=== PATIENT | female | born 1955 | race Caucasian/White ===

== ENCOUNTER 2019-11-06 15:43 | Emergency (ER) | payer MEDICARE, OTHER ==
[~2019-11-06] VITALS: Ht 167.6 cm; Wt 88.5 kg
[~2019-11-06 15:43] MED LIST: ACTONEL150 MG PO; ATENOLOL PO; ATENOLOL25 MG PO; CIPRO500 MG PO; CITALOPRAM HBR20 MG PO; COZAAR25 MG PO; CYCLOBENZAPRINE5 MG PO; DITROPAN XL10 MG PO; DOXYCYCLINE HY100 MG PO; ENABLEX7.5 MG PO; GABAPENTIN300 MG PO; GLUCOVANCE 2.51 EACH PO; GLYBURIDE-METF1 EACH PO; HYDROCODON-ACE1 EACH PO; INSULIN LISPRO; JANUVIA100 MG PO; LANTUS100 UNITS/ SQ; LEVOTHYROXINE; LEVOTHYROXINE PO; LOSARTAN POTASS25 MG PO; NORCO 7.5-3251 EACH PO; OMEPRAZOLE20 M1 PO; SIMVASTATIN20 MG PO; SYNTHROID50 MCG PO
[2019-11-06] MEDS ORDERED: DEXAMETHASONE SOD PHOS INJ 4 MG/ML VIAL IV ONE (16:45)
[2019-11-06] MEDS ORDERED: ALBUTEROL SULFATE HFA 8GM INHALATION AEROSOL INH PRN (16:45)
[2019-11-06] MEDS ORDERED: DEXAMETHASONE SOD PHOS INJ 4 MG/ML VIAL IM ONE (17:15)
--- NOTE | 2019-11-06 17:40 | Diagnostic Imaging Report ---
EXAMINATION: CHEST SINGLE (PORTABLE) INDICATION: Cough for one week. COMPARISON: None FINDINGS: Examination is limited by low lung volumes and underpenetration. TUBES and LINES: None. LUNGS: There is diffuse hazy opacification of the bilateral lung bases. PLEURA: No pleural effusion or pneumothorax. HEART AND MEDIASTINUM: The cardiomediastinal silhouette is unremarkable. BONES AND SOFT TISSUES: No acute osseous lesion. Soft tissues are unremarkable. UPPER ABDOMEN: No free air under the diaphragm. IMPRESSION: Diffuse hazy opacification of the bilateral lung bases which may be due to image technique. Superimposed infectious process cannot be excluded. Recommend repeat examination in AP and lateral projections with improved lung aeration. Signed by: Angela Palacio MD on 11/06/2019 5:36 PM
--- NOTE | 2019-11-06 19:02 | Emergency Department Note ---
History of Present Illnes History of Present Illness Chief Complaint: COVID PUI History of Present Illness This is a 63 year old female PATIENT IN FROM HOME WITH COMPLAINTS OF PRODUCTIVE COUGH X 1 WEEK; STATES THAT SHE RECENTLY HAD COVID TESTING IN SEPTEMBER AND IT WAS NEGATIVE; PATIENT RATES PAIN 5/10, APPEARS IN NO DISTRESS, O2 SATS 98% ON ROOM AIR. Historian: Patient Arrival Mode: Car Cleaning Specialist Required: No Onset (how long ago): week(s) (1) Radiation: Reports non-radiation Severity: moderate Onset quality: gradual Timing of current episode: constant Progression: waxing and waning Chronicity: new Context: Denies recent illness Relieving factors: none Exacerbating factors: none Associated symptoms: Reports denies other symptoms Treatments prior to arrival: none Past Medical/Family History Physician Review I have reviewed the patient's past medical and family history. Any updates have been documented here. Past Medical History Recent Fever: No Clinical Suspicion of Infectio: No New/Unexplained Change in Ment: No Past Medical History: Hypertension, GERD, Hyperlipedemia Other Medical History: TACHYCARDIA HYPERLIPIDEMIA OVERACTIVE BLADDER GERD Past Surgical History: Cholecysctectomy Other Surgery: RIGHT FOOT SURGERY Social History Smoking Cessation: Former smoker Counseling Performed: No Alcohol Use: None Any Illegal Drug Use: No TB Exposure/Symptoms: No Physically hurt or threatened: No Family History Family history of heart diseas: No Other Last Tetanus: UNKNOWN Any Pre-Existing Lines (PICC,: No Review of Systems Review of Systems Constitutional: Reports no symptoms EENTM: Reports no symptoms Cardiovascular: Reports no symptoms Respiratory: Reports as per HPI Gastrointestinal: Reports no symptoms Genitourinary: Reports no symptoms Musculoskeletal: Reports no symptoms Integumentary: Reports no symptoms Neurological: Reports no symptoms Psychological: Reports no symptoms Endocrine: Reports no symptoms Hematological/Lymphatic: Reports no symptoms Physical Exam Related Data Allergies: Coded Allergies: No Known Drug Allergies (Verified Allergy, Unknown, NONE, 01/12/17) Triage Vital Signs Vital Signs Date Time Temp Pulse Resp B/P (MAP) Pulse Ox O2 Delivery O2 Flow Rate FiO2 11/06/19 15:49 98.5 60 18 130/57 98 Room Air Vital signs reviewed: Yes Physical Exam CONSTITUTIONAL Constitutional: Present well-developed, Present well-nourished HENT HENT: Present normocephalic, Present atraumatic, Present oropharynx clear/moist, Present nose normal HENT L/R: Present left ext ear normal, Present right ext ear normal EYES Eyes: Reports PERRL, Reports conjunctivae normal NECK Neck: Present ROM normal PULMONARY Pulmonary: Present effort normal, Present breath sounds normal CARDIOVASCULAR Cardiovascular: Present regular rhythm, Present heart sounds normal, Present capillary refill normal, Present normal rate GASTROINTESTINAL Abdominal: Present soft, Present nontender, Present bowel sounds normal GENITOURINARY Genitourinary: Present exam deferred SKIN Skin: Present warm, Present dry MUSCULOSKELETAL Musculoskeletal: Present ROM normal NEUROLOGICAL Neurological: Present alert, Present oriented x 3, Present no gross motor or sensory deficits PSYCHOLOGICAL Psychological: Present mood/affect normal, Present judgement normal Results Laboratory Laboratory Laboratory Tests Test 11/06/19 16:58 Imaging Imaging results reviewed: Yes Impressions EXAMINATION: CHEST SINGLE (PORTABLE) INDICATION: Cough for one week. COMPARISON: None FINDINGS: Examination is limited by low lung volumes and underpenetration. TUBES and LINES: None. LUNGS: There is diffuse hazy opacification of the bilateral lung bases. PLEURA: No pleural effusion or pneumothorax. HEART AND MEDIASTINUM: The cardiomediastinal silhouette is unremarkable. BONES AND SOFT TISSUES: No acute osseous lesion. Soft tissues are unremarkable. UPPER ABDOMEN: No free air under the diaphragm. IMPRESSION: Diffuse hazy opacification of the bilateral lung bases which may be due to image technique. Superimposed infectious process cannot be excluded. Recommend repeat examination in AP and lateral projections with improved lung aeration. Signed by: Angela Palacio MD on 11/06/2019 5:36 PM Assessment & Plan Medical Decision Making MDM CHECK CXR, CHECK COVID SWAB - R/O CAP, COVID - O2 SATS 98% ON RA Reassessment Reassessment DC HOME WITH ZPACK, SELF-QUARANTINE, PRONING, F/U PCP, RTED SX'S WORSEN Assessment & Plan Final Impression: (1) ACUTE BRONCHITIS, UNSPECIFIED Depart Disposition: HOME, SELF-CARE Last Vital Signs Date Time Temp Pulse Resp B/P (MAP) Pulse Ox O2 Delivery O2 Flow Rate FiO2 11/06/19 16:35 98.6 70 17 100/86 98 11/06/19 15:49 Room Air Home Meds Reported Medications Gabapentin (GABAPENTIN) 300 Mg Capsule, 300 MG PO TID, #60 CAP 09/15/16 Hydrocodone Bit/Acetaminophen (NORCO 7.5-325 TABLET) 1 Each Tablet, 1 EA PO BID PRN for PAIN, TAB 02/07/15 Levothyroxine Sodium (SYNTHROID) 50 Mcg Tab, 50 MCG PO DAILY, TAB 04/04/14 Simvastatin (SIMVASTATIN) 20 Mg Tablet, 20 MG PO HS 04/04/14 Glyburide/Metformin Hcl (GLUCOVANCE 2.5-500 MG TABLET) 1 Each Tablet, PO BID 04/04/14 Oxybutynin Chloride (DITROPAN XL) 10 Mg Tab.er.24, 10 MG PO DAILY 04/04/14 Cyclobenzaprine Hcl (FLEXERIL) 5 Mg Tablet, 5 MG PO QD-BID 04/04/14 Atenolol (ATENOLOL) 25 Mg Tablet, 25 MG PO DAILY 04/04/14 Insulin Glargine (LANTUS) 100 Units/Ml Ml, 70 UNITS SQ HS 04/04/14 Losartan Potassium (COZAAR) 25 Mg Tablet, 25 MG PO BID, TAB 04/04/14 Omeprazole (OMEPRAZOLE) 20 Mg Tablet.dr, 20 MG PO DAILY 01/30/13 Sitagliptin Phosphate (JANUVIA) 100 Mg Tablet, 100 MG PO DAILY 01/30/13 Medications in the ED Albuterol 2 PUFFS RQ4H PRN INH SHORTNESS OF BREATH Last administered on 11/06/19at 17:14; Admin Dose 2 GM; Start 11/06/19 at 16:45; Stop 12/06/19 at 16:44 Dexamethasone Sodium Phosphate 8 mg NOW ONCE IV ; Start 11/06/19 at 16:45; Stop 11/06/19 at 16:46; Status DC Dexamethasone Sodium Phosphate 8 mg NOW ONCE IM Last administered on 11/06/19at 17:17; Admin Dose 8 MG; Start 11/06/19 at 17:15; Stop 11/06/19 at 17:21; Status DC NADINE MERINO MD Nov 06, 2019 19:02
[2019-11-06 19:20] VITALS: BP 132/50
--- NOTE | 2019-11-12 11:08 | NUR ---
Attempt to call pt with COVID results, no answer.
== END 2019-11-06 19:29 | disposition home or self-care (01) ==
LOC: ER 16:24
DX: J20.9 Acute bronchitis, unspecified (principal); R05 Cough; I10 Essential (primary) hypertension; E78.5 Hyperlipidemia, unspecified; K21.9 Gastro-esophageal reflux disease without esophagitis; Z11.59 Encounter for screening for other viral diseases
CPT/HCPCS: 71045; 87635; 99284; J1100; U0002

== ENCOUNTER 2019-11-28 17:52 | Inpatient (IN) | payer MEDICARE, OTHER ==
[~2019-11-28] VITALS: Ht 167.6 cm; Wt 88.5 kg
[2019-11-28] MEDS ORDERED: AZITHROMYCIN 500MG/NS 250 ML 250 ML IV STA (18:05)
[2019-11-28] MEDS ORDERED: ACETAMINOPHEN 325 MG TAB PO STA (18:05)
--- NOTE | 2019-11-28 18:07 | Emergency Department Note ---
History of Present Illnes History of Present Illness Chief Complaint: COVID PUI History of Present Illness This is a 63 year old female with 2 week h/o of cough and myalgias presents to the ED for continued respiratory isuses. Patient seen recently in ED and was diagnosed with bronchitis . Per patient with two negative COVID-19 tests Historian: Patient Arrival Mode: Car Onset (how long ago): week(s) (2) Severity: moderate Duration (how long): week(s) (2) Timing of current episode: constant Progression: worsening Chronicity: new Context: Reports recent illness Associated symptoms: Reports cough, Reports fever/chills Previous service: tests performed, one or more referrals, re-evaluation Past Medical/Family History Physician Review I have reviewed the patient's past medical and family history. Any updates have been documented here. Past Medical History Recent Fever: Yes Clinical Suspicion of Infectio: Yes New/Unexplained Change in Ment: No Past Medical History: Hypertension, GERD, Hyperlipedemia Other Medical History: TACHYCARDIA HYPERLIPIDEMIA OVERACTIVE BLADDER GERD Past Surgical History: Cholecysctectomy Other Surgery: RIGHT FOOT SURGERY Social History Smoking Cessation: Never Smoker Alcohol Use: None Any Illegal Drug Use: No Other Last Tetanus: UNKNOWN Review of Systems Review of Systems Constitutional: Reports fever EENTM: Reports no symptoms Cardiovascular: Reports no symptoms Respiratory: Reports pain with cough Gastrointestinal: Reports no symptoms Genitourinary: Reports no symptoms Musculoskeletal: Reports no symptoms Integumentary: Reports no symptoms Neurological: Reports no symptoms Psychological: Reports no symptoms Endocrine: Reports no symptoms Hematological/Lymphatic: Reports no symptoms Physical Exam Related Data Allergies: Coded Allergies: No Known Allergies (Unverified , 11/28/19) Vital signs reviewed: Yes Physical Exam CONSTITUTIONAL Constitutional: Present cachectic, Present ill appearing HENT HENT: Present normocephalic, Present atraumatic, Present oropharynx clear/moist, Present nose normal HENT L/R: Present left ext ear normal, Present right ext ear normal EYES Eyes: Reports PERRL, Reports conjunctivae normal NECK Neck: Present ROM normal PULMONARY Pulmonary: Present effort normal, Present breath sounds normal, Present other (decreased BS) CARDIOVASCULAR Cardiovascular: Present regular rhythm, Present heart sounds normal, Present capillary refill normal, Present normal rate GASTROINTESTINAL Abdominal: Present soft, Present nontender, Present bowel sounds normal GENITOURINARY Genitourinary: Present exam deferred SKIN Skin: Present warm, Present dry MUSCULOSKELETAL Musculoskeletal: Present ROM normal NEUROLOGICAL Neurological: Present alert, Present oriented x 3, Present no gross motor or sensory deficits PSYCHOLOGICAL Psychological: Present mood/affect normal, Present judgement normal Results Laboratory Lab results reviewed: Yes Laboratory comments Laboratory Tests Test 11/28/19 18:15 11/28/19 18:13 White Blood Count 5.71 x10e3/uL (4.8-10.8) Red Blood Count 4.62 x10e6/uL (3.6-5.1) Hemoglobin 13.8 g/dL (12.0-16.0) Hematocrit 41.0 % (34.2-44.1) Mean Corpuscular Volume 88.7 fL (81-99) Mean Corpuscular Hemoglobin 29.9 pg (28-32) Mean Corpuscular Hemoglobin Concent 33.7 g/dL (31-35) Red Cell Distribution Width 12.2 % (11.7-14.4) Platelet Count 146 x10e3/uL (140-360) Neutrophils (%) (Auto) 60.1 % (38.7-80.0) Lymphocytes (%) (Auto) 29.9 % (18.0-39.1) Monocytes (%) (Auto) 6.8 % (4.4-11.3) Eosinophils (%) (Auto) 2.6 % (0.0-6.0) Basophils (%) (Auto) 0.4 % (0.0-1.0) Neutrophils # (Auto) 3.4 (2.1-6.9) Lymphocytes # (Auto) 1.7 (1.0-3.2) Monocytes # (Auto) 0.4 (0.2-0.8) Eosinophils # (Auto) 0.2 (0.0-0.4) Basophils # (Auto) 0.0 (0.0-0.1) Absolute Immature Granulocyte (auto 0.01 x10e3/uL (0-0.1) Sodium Level 137 mmol/L (136-145) Potassium Level 4.1 mmol/L (3.5-5.1) Chloride Level 99 mmol/L (98-107) Carbon Dioxide Level 27 mmol/L (22-29) Anion Gap 15.1 mmol/L (8-16) Blood Urea Nitrogen 8 mg/dL (7-26) Creatinine 1.08 mg/dL (0.57-1.11) Estimat Glomerular Filtration Rate 51 ML/MIN (60-) BUN/Creatinine Ratio 7 (6-25) Glucose Level 399 mg/dL (74-118) Calcium Level 9.4 mg/dL (8.4-10.2) Total Bilirubin 0.5 mg/dL (0.2-1.2) Aspartate Amino Transf (AST/SGOT) 26 IU/L (5-34) Alanine Aminotransferase (ALT/SGPT) 31 IU/L (0-55) Alkaline Phosphatase 127 IU/L (40-150) Total Protein 7.5 g/dL (6.5-8.1) Albumin 3.8 g/dL (3.5-5.0) Globulin 3.7 g/dL (2.3-3.5) Albumin/Globulin Ratio 1.0 (0.8-2.0) Imaging Imaging results reviewed: Yes Impressions [place] [address] Patient Name: GRICEL CALLAHAN MR #: [id number] : 1955 Age/Sex: 63/F Req #: [id number] Adm Physician: Ordered by: LENNY WINSTON DO Report #: [id number] Location: ER Room/Bed: Procedure: [id number] CT/CT CHEST W Exam Date: Exam Time: REPORT STATUS: Signed EXAMINATION: CT scan of the chest with contrast. TECHNIQUE: Helical CT images of the chest were performed from the lung apices to the level of the adrenal glands after the intravenous administration of 100 cc of Omnipaque 300. Coronal and sagittal reformatted images were obtained. Dose modulation, iterative reconstruction, and/or weight based adjustment of the mA/kV was utilized to reduce the radiation dose to as low as reasonably achievable. COMPARISON: None. CLINICAL HISTORY:Possible pneumonia, hypoxia DISCUSSION: LINES/TUBES: None. LUNGS AND AIRWAYS: 6 mm left lower lobe pulmonary nodule. 3 mm right upper lobe pulmonary nodule. PLEURA: No pneumothorax or pleural effusions. HEART AND MEDIASTINUM: The thyroid gland is normal. The heart and pericardium are within normal limits. LYMPH NODES: There is no mediastinal, hilar or axillary lymphadenopathy. ABDOMEN: 5.5 cm hypodensity in the peripheral aspect of the right hepatic lobe. Smaller adjacent hypodensity posteriorly measuring 1.5 cm. Cirrhotic morphology. Cholecystectomy. BONES AND SOFT TISSUES: No acute bony abnormalities. IMPRESSION: No pulmonary embolism. 2 pulmonary nodules measuring up to 6 mm in the left lower lobe. Cirrhotic liver morphology with 2 hypodensities right lobe measuring up to 5.4 cm. Nonemergent MRI of the abdomen with contrast recommended. Signed by: Dr. Geni Becerril M.D. on 11/28/2019 8:28 PM Dictated By: GENI BECERRIL MD 27 Transcribed By: LUCY on 11/28/192027 COPY TO: LENNY WINSTON DO~ [place] [address] Patient Name: GRICEL CALLAHAN MR #: [id number] : 1955 Age/Sex: 63/F Req #: [id number] Adm Physician: Ordered by: LENNY WINSTON DO Report #: [id number] Location: ER Room/Bed: Procedure: [id number] DX/CHEST SINGLE (PORTABLE) Exam Date: 11/28/19 Exam Time: 1817 REPORT STATUS: Signed Examination: Single AP view of the chest. COMPARISON: None. INDICATION: Cough DISCUSSION: Lines/tubes: None. Lungs: The lungs are well inflated and clear. No pneumonia or pulmonary edema. Pleura: No pleural effusion or pneumothorax. Heart and mediastinum: Prominent heart size. Bones and soft tissues: No acute bony abnormalities. Soft tissue attenuation overlying the lower lungs. IMPRESSION: 1. No acute cardiopulmonary abnormalities. Signed by: Dr. Geni Becerril M.D. on 11/28/2019 6:47 PM Dictated By: GENI BECERRIL MD 46 Transcribed By: LUCY on 11/28/191846 COPY TO: LENNY WINSTON DO~ Critical Care Time Total Critical Care Time (min): 31 Critcal care necessary due to: respiratory failure Critcal care time spent by me: evaluation patient response to tx, examination of patient, obtaining hx from patient/surrogate, order/review laboratory studies, order/review radiographic studies, pulse oximetry, re-evaluation of patient condition Assessment & Plan Medical Decision Making [facility] 63 yof presents with dyspea and hypoxia. Respiratory distress upon arrival. Diff Dx : PE, PTX, CHF, Sepsis, COVID-19 URI infection, ACS, COPDD, ARDS, airway obstruction, Lung CA. Patient highly critical. Plan to admit for continuous pulse oximetry monitoring Assessment & Plan Final Impression: (1) Person under investigation for COVID-19 (2) Hypoxia Depart Disposition: ADMITTED Home Meds Reported Medications Gabapentin (GABAPENTIN) 300 Mg Capsule, 300 MG PO TID, #60 CAP 09/15/16 Hydrocodone Bit/Acetaminophen (NORCO 7.5-325 TABLET) 1 Each Tablet, 1 EA PO BID PRN for PAIN, TAB 02/07/15 Levothyroxine Sodium (SYNTHROID) 50 Mcg Tab, 50 MCG PO DAILY, TAB 04/04/14 Simvastatin (SIMVASTATIN) 20 Mg Tablet, 20 MG PO HS 04/04/14 Glyburide/Metformin Hcl (GLUCOVANCE 2.5-500 MG TABLET) 1 Each Tablet, PO BID 04/04/14 Oxybutynin Chloride (DITROPAN XL) 10 Mg Tab.er.24, 10 MG PO DAILY 04/04/14 Cyclobenzaprine Hcl (FLEXERIL) 5 Mg Tablet, 5 MG PO QD-BID 04/04/14 Atenolol (ATENOLOL) 25 Mg Tablet, 25 MG PO DAILY 04/04/14 Insulin Glargine (LANTUS) 100 Units/Ml Ml, 70 UNITS SQ HS 04/04/14 Losartan Potassium (COZAAR) 25 Mg Tablet, 25 MG PO BID, TAB 04/04/14 Omeprazole (OMEPRAZOLE) 20 Mg Tablet.dr, 20 MG PO DAILY 01/30/13 Sitagliptin Phosphate (JANUVIA) 100 Mg Tablet, 100 MG PO DAILY 01/30/13 LENNY WINSTON DO Nov 28, 2019 18:07
--- NOTE | 2019-11-28 18:51 | Diagnostic Imaging Report ---
Examination: Single AP view of the chest. COMPARISON: None. INDICATION: Cough DISCUSSION: Lines/tubes: None. Lungs: The lungs are well inflated and clear. No pneumonia or pulmonary edema. Pleura: No pleural effusion or pneumothorax. Heart and mediastinum: Prominent heart size. Bones and soft tissues: No acute bony abnormalities. Soft tissue attenuation overlying the lower lungs. IMPRESSION: 1. No acute cardiopulmonary abnormalities. Signed by: Dr. Ramone Mejia M.D. on 11/28/2019 6:47 PM
[2019-11-28 18:54] LABS: BASOPHILS % 0.4 % (0.0-1.0); EOSINOPHILS # (AUTO) 0.2 (0.0-0.4); EOSINOPHILS % 2.6 % (0.0-6.0); HEMOGLOBIN 13.8 g/dL (12.0-16.0); LYMPHOCYTES # (AUTO) 1.7 (1.0-3.2); LYMPHOCYTES % 29.9 % (18.0-39.1); MEAN CORPUSCULAR HEMOGLOBIN 29.9 pg (28-32); MEAN CORPUSCULAR HGB CONC 33.7 g/dL (31-35); MEAN CORPUSCULAR VOLUME 88.7 fL (81-99); MONOCYTES # (AUTO) 0.4 (0.2-0.8); MONOCYTES % 6.8 % (4.4-11.3); NEUTROPHILS # (AUTO) 3.4 (2.1-6.9); NEUTROPHILS % 60.1 % (38.7-80.0); PLATELET COUNT 146 x10e3/uL (140-360); RED BLOOD COUNT 4.62 x10e6/uL (3.6-5.1); RED CELL DISTRIBUTION WIDTH 12.2 % (11.7-14.4)
--- OUTSIDE RECORDS SUMMARY | 2019-11-28 18:59 | XMS REPORT | Continuity of Care Document ---
Author Author [facility] t Organization [facility] Address [address] [place] [address] Phone Unavailable Care Team Providers Care Foreign Exchange Student Coordinator Name Role Phone NO, PCP PCP Unavailable LENNY WINSTON Attphys Unavailable Jerrod MERINO Attphys Unavailable CORINNE CAMARGO P.A. Attphys Unavailable RINKU GILMORE PA Attphys Unavailable Alfonso Mendosa M.D. Attphys Unavailable Tristen SHAVER Attphys Unavailable Payers Payer Name Policy Type Policy Number Effective Date Expiration Date S ource Medicare A & B [id number] 2008 00:00:00 [facility] [id number] [facility] Problems Condition Name Condition Details Condition Category Status Onset Date Resolution Date Last Treatment Date Treating Clinician Comments Source Abdominal pain Problem Active [facility] Contusion of right foot Problem Active [facility] Closed fracture of left tibial plateau w ith routine healing, subsequent encounter Closed fracture of left tibial plateau w ith routine healing, subsequent encounter Problem Active [facility] Closed bicondylar fracture of left tibial plateau Clos ed bicondylar fracture of left tibial plateau Problem Active [facility] Osteoporosis Osteoporosis Problem Active [facility] Screening for endocrine, nutritional, metabolic and im munity disorder Screening for endocrine, nutritional, metabolic and immunity disorder Problem Active [facility] Allergies, Adverse Reactions, Alerts This patient has no known allergies or adverse reactions. Social History Social Habit Start Date Stop Date Quantity Comments Source Sex Assigned At 1955 00:00:00 1955 00:00:00 Female [facility] Medications Ordered Medication Name Filled Medication Name Start Date Stop Da te Current Medication? Ordering Clinician Indication Dosage Frequency Signature (SIG) Comments Components Source Vitamin D (Ergocalciferol) 1.25 MG (96666 UT) Oral Cap sunny Vitamin D (Ergocalciferol) 1.25 MG (25200 UT) Oral Capsule 2019-01-01 00:00:00 Yes RINKU ENGLAND 1 TAKE 1 CAPSULE WEEKLY [facility] Forteo 600 MCG/2.4ML SOLN Forteo 600 MCG/2.4ML SOLN 2018-01-16 00:00: 00 Yes CORINNE CAMARGO P.AMargareth QD INJECT 20 MCG. SUBCUTANEOUSLY ONCE DAILY DIRECTED. [facility] Cephalexin 500 MG Oral Capsule Cephalexin 500 MG Oral Capsul e 2017-11-28 00:00:00 Yes RINKU ENGLAND Q0.25D TAKE 1 CAPSULE 4 TI MES DAILY. [facility] Sulfamethoxazole-Trimethoprim 800-160 MG Oral Tablet S ulfamethoxazole- Trimethoprim 800-160 MG Oral Tablet 2017-10-10 00:00:00 Yes RINKU ENGLAND 1 Q0.5D TAKE 1 TABLET TWICE DAILY [facility] Atenolol Atenolol Yes 25 Daily [facility] Cyclobenzaprine Hcl (Flexeril) 5 Mg TABLET Cyclobenzap rine Hcl (Flexeril) 5 Mg TABLET Yes 5 Qd-Bid [facility] Gabapentin Gabapentin Yes 300 Three Times A Day [facility] Glyburide/Metformin Hcl (Glucovance 2.5-500 Mg Tablet) 1 Each TABLET Glyburide/Metformin Hcl (Glucovance 2.5-500 Mg Tablet) 1 Each TABLET Yes Twice A Day [facility] Hydrocodone Bit/Acetaminophen (Madison 7.5-325 Tablet) 1 Each TABLET Hydrocodone Bit/Acetaminophen (Madison 7.5-325 Tablet) 1 Each TABLET Yes 1 Twice A Day as needed for Pain [facility] Insulin Glargine (Lantus) 100 Units/Ml ML Insulin Glar gine (Lantus) 100 Units/Ml ML Yes 70 Bedtime [facility] Levothyroxine Sodium (Synthroid) 50 Mcg TAB Levothyrox ine Sodium (Synthroid) 50 Mcg TAB Yes 50 Daily [facility] Losartan Potassium (Cozaar) 25 Mg TABLET Losartan Pota ssium (Cozaar) 25 Mg TABLET Yes 25 Twice A Day [facility] Omeprazole Omeprazole Yes 20 Daily [facility] Oxybutynin Chloride (Ditropan Xl) 10 Mg TAB.ER.24 Oxyb utynin Chloride (Ditropan Xl) 10 Mg TAB.ER.24 Yes 10 Daily [facility] Simvastatin Simvastatin Yes 20 Bedtime [facility] Sitagliptin Phosphate (Januvia) 100 Mg TABLET Sitaglip tin Phosphate (Januvia) 100 Mg TABLET Yes 100 Daily [facility] Darifenacin Hydrobromide (Enablex) 7.5 Mg TAB.ER.24H D arifenacin Hydrobromide (Enablex) 7.5 Mg TAB.ER.24H 2016-10-05 00:00:00 No 7.5 Daily [facility] Ciprofloxacin Hcl (Cipro) 500 Mg TABLET Ciprofloxacin Hcl (C ipro) 500 Mg TABLET 2016-09-15 00:00:00 No 500 Every 12 Hours [facility] Citalopram Hydrobromide (Citalopram Hbr) 20 Mg TABLET Citalopram Hydrobromide (Citalopram Hbr) 20 Mg TABLET 2016-09-15 00:00:00 No 20 Daily [facility] Doxycycline Hyclate Doxycycline Hyclate 2016-09-15 00:00:00 No 100 Every 12 Hours [facility] Atenolol Atenolol 2014-04-04 00:00:00 No Daily [facility] Cyclobenzaprine Hcl (Flexeril) 5 Mg TABLET Cyclobenzap rine Hcl (Flexeril) 5 Mg TABLET 2014-04-04 00:00:00 No 5 Daily [facility] Darifenacin Hydrobromide (Enablex) 7.5 Mg TAB.ER.24H D arifenacin Hydrobromide (Enablex) 7.5 Mg TAB.ER.24H 2014-04-04 00:00:00 No 7.5 Daily [facility] Glyburide/Metformin Hcl (Glyburide-Metformin 2.5-500 M g) 1 Each TABLET Glyburide/Metformin Hcl (Glyburide-Metformin 2.5-500 Mg) 1 Each TABLET 2014-04-04 00:00:00 No Twice A Day [facility] Humalog 70-80 U Q Hs Humalog 70-80 U Q Hs 2014-04-04 00:00:00 No [facility] Hydrocodone Bit/Acetaminophen (Hydrocodon-Acetaminophe n 5-500) 1 Each CAPSULE Hydrocodone Bit/Acetaminophen (Hydrocodon-Acetaminophen 5-500) 1 Each CAPSULE 2014-04-04 00:00:00 No Twice A Day [facility] Levothyroxine Levothyroxine 2014-04-04 00:00:00 [facility] Losartan Potassium Losartan Potassium 2014-04-04 00:00:00 No 25 Daily [facility] Risedronate Sodium (Actonel) 150 Mg TABLET Risedronate Sodium (Actonel) 150 Mg TABLET 2014-04-04 00:00:00 No 150 Daily [facility] Vital Signs Vital Name Observation Time Observation Value Comments Source Body Temperature 2019-11-06 19:20:00 97.0 [degF] [facility] Weight 2019-11-06 15:49:00 195 [lb_av] [facility] BMI (Body Mass Index) 2019-11-06 15:49:00 31.5 kg/m2 [facility] Procedures Procedure Date / Time Performed Performing Clinician Sourc e CT Knee without contrast [id number] 2019-04-10 00:00:[address] [facility] CT Tib Fib without contrast [id number] 2019-03-26 00:00:[address] [facility] [U] XRAY KNEE 1 OR 2 VWS LEFT [id number] 2019-03-12 00:00:00 [facility] [Q] SED RATE BY MODIFIED ELIZA, MANUAL 2018-07-27 00:00:00 [facility] [QLH] CBC (INCLUDES DIFF/PLT) 2018-07-27 00:00:00 [facility] [QLH] C-REACTIVE PROTEIN 2018-07-27 00:00:00 [facility] Vitamin D 25-Hydroxy, D2 + D3 2018-07-27 00:00:00 [facility] [QH] CALCIUM 2018-06-30 00:00:00 [facility] [Q] PROCOLLAGEN TYPE I INTACT N TERMINAL PROPEPTIDE 2018-06-30 0 0:00:00 [facility] [U] XRAY KNEE 1 OR 2 VWS LEFT [id number] 2018-06-20 00:00:00 [facility] [Q] PROCOLLAGEN TYPE I INTACT N TERMINAL PROPEPTIDE 2018-03-24 0 0:00:00 [facility] [QH] CALCIUM 2018-03-24 00:00:00 [facility] [QL] PHOSPHATE ( PHOSPHORUS) 2018-03-24 00:00:00 [facility] [QL] MAGNESIUM 2018-03-24 00:00:00 [facility] [U] XRAY KNEE 1 OR 2 VWS LEFT [id number] 2018-03-23 00:00:00 [facility] [U] XRAY KNEE 1 OR 2 VWS LEFT [id number] 2018-01-13 00:00:00 [facility] [U] XRAY KNEE 1 OR 2 VWS LEFT [id number] 2017-12-01 00:00:00 [facility] [Q] PROCOLLAGEN TYPE I INTACT N TERMINAL PROPEPTIDE 2017-11-18 0 0:00:00 [facility] [QH] CALCIUM 2017-11-18 00:00:00 [facility] [U] XRAY KNEE 1 OR 2 VWS LEFT [id number] 2017-11-18 00:00:00 [facility] [O] Dexa Scan ([employer] X-Ray) [id number] 0518-07-25 00:00:00 [facility] [O] Dexa Scan ([employer] X-Ray) [id number] 8199-07-02 00:00:00 [facility] Plan of Care Planned Activity Planned Date Details Comments Source Diagnostic Test Pending 2018-06-23 00:00:00 [Q] PROCOLLAGEN TYPE I INTACT N TERMINAL PROPEPTIDE [code = [Q] PROCOLLAGEN TYPE I INTACT N TERMINAL PROPEPTIDE] [facility] Diagnostic Test Pending 2018-06-23 00:00:00 [QH] CALCIUM [code = [QH] CALCIUM] [facility] Diagnostic Test Pending 2018-06-23 00:00:00 [QLH] PHOSPHATE ( PHOSPHORUS) [code = [QLH] PHOSPHATE ( PHOSPHORUS)] [facility] Diagnostic Test Pending 2018-06-23 00:00:00 [QLH] MAGNESIUM [code = [QLH] MAGNESIUM] [facility] Diagnostic Test Pending 2018-02-18 00:00:00 [Q] PROCOLLAGEN TYPE I INTACT N TERMINAL PROPEPTIDE [code = [Q] PROCOLLAGEN TYPE I INTACT N TERMINAL PROPEPTIDE] [facility] Diagnostic Test Pending 2018-02-18 00:00:00 [QH] CALCIUM [code = [QH] CALCIUM] [facility] Diagnostic Test Pending 2018-02-18 00:00:00 [Q] PROCOLLAGEN TYPE I INTACT N TERMINAL PROPEPTIDE [code = [Q] PROCOLLAGEN TYPE I INTACT N TERMINAL PROPEPTIDE] [facility] Diagnostic Test Pending 2018-02-18 00:00:00 [QH] CALCIUM [code = [QH] CALCIUM] [facility] Instructions COVID-19: 07/09/2019 [facility] Instructions Bronchitis (Acute) - Adult [facility] Encounters Start Date/Time End Date/Time Encounter Type Admission Type [facility] Care Department Encounter ID Source 2019-11-06 16:24:00 2019-11-06 19:29:00 Departed Emergency Room 1 NADINE MERINO [facility] [id number] [facility] 2019-05-04 10:30:00 2019-05-04 10:30:00 Appointment; DIANE ACMARGO P.A. YAZDANI, CHRISTINA, P.A. [facility] [id number] [facility] 2019-03-26 12:00:00 2019-03-26 12:00:00 Appointment; RINKU GILMORE PA HANSEN, DENISE, PA [facility] [id number] [facility] 2019-01-01 12:00:00 2019-01-01 12:00:00 Appointment; RINKU GILMORE PA HANSEN, DENISE, PA [facility] [id number] [facility] 2018-06-30 10:30:00 2018-06-30 10:30:00 Appointment; DIANE CAMARGO P.A. YAZDANI, CHRISTINA, P.A. [facility] Orthopedics [id number] [facility] 2018-06-26 10:45:00 2018-06-26 10:45:00 Appointment; RINKU GILMORE PA HANSEN, DENISE, PA [facility] Orthopedics [id number] [facility] 2018-03-27 13:15:00 2018-03-27 13:15:00 Appointment; RINKU GILMORE PA HANSEN, DENISE, PA [facility] Orthopedics [id number] [facility] 2018-03-24 10:30:00 2018-03-24 10:30:00 Appointment; DIANE CAMARGO P.A. YAZDANI, CHRISTINA, PHans [facility] Orthopedics [id number] [facility] 2018-02-27 13:00:00 2018-02-27 13:00:00 Appointment; RINKU GILMORE PA HANSEN, DENISE, PA [facility] [id number] [facility] 2018-01-23 13:30:00 2018-01-23 13:30:00 Appointment; RINKU GILMORE PA HANSEN, DENISE, PA [facility] Orthopedics [id number] [facility] 2017-12-12 13:30:00 2017-12-12 13:30:00 Appointment; RINKU GILMORE PA HANSEN, DENISE, PA [facility] Orthopedics [id number] [facility] 2017-11-28 13:15:00 2017-11-28 13:15:00 Appointment; RINKU GILMORE PA HANSEN, DENISE, PA [facility] Orthopedics [id number] [facility] 2017-11-18 11:00:00 2017-11-18 11:00:00 Appointment; DIANE CAMARGO P.A. YAZDANI, CHRISTINA, [place] [facility] Orthopedics [id number] [facility] 2017-10-31 13:15:00 2017-10-31 13:15:00 Appointment; RINKU GILMORE PA HANSEN, DENISE, PA [facility] [id number] [facility] 2017-10-24 12:45:00 2017-10-24 12:45:00 Appointment; RINKU GILMORE PA HANSEN, DENISE, PA [facility] [id number] [facility] 2017-10-13 07:00:00 2017-10-13 07:00:00 Appointment; Alfonso Mendosa M.D. Achor, Timothy, M.D. [facility] [id number] [facility] 2017-10-10 12:45:00 2017-10-10 12:45:00 Appointment; RINKU GILMORE PA HANSEN, DENISE, PA [facility] [id number] [facility] Results Test Description Test Time Test Comments Results Result Comments Source CHEST SINGLE (PORTABLE) 2019-11-28 18:46:00 [place] [address] Patient Name: GRICEL CALLAHAN MR #: [id number] : 1955 Age/Sex: 63/F Req #: [id number] Adm Physician: Ordered by: LENNY WINSTON DO Report #: [id number] Location: ER Room/Bed: Procedure: [id number] DX/CHEST SINGLE (PORTABLE) Exam Date: 11/28/19 Exam Time: 1817 REPORT STATUS: Signed Examination: Single AP view of the chest. COMPARISON: None. INDICATION: Cough DISCUSSION: Lines/tubes: None. Lungs: The lungs are well inflated and clear. No pneumonia or pulmonary edema. Pleura: No pleural effusion or pneumothorax. Heart and mediastinum: Prominent heart size. Bones and soft tissues: No acute bony abnormalities. Soft tissue attenuation overlying the lower lungs. IMPRESSION: 1. No acute cardiopulmonary abnormalities. Signed by: Dr. Geni Becerril M.D. on 11/28/2019 6:47 PM Dictated By: GENI BECERRIL MD 46 Transcribed By: LUCY on 11/28/191846 COPY TO: LENNY WINSTON CHEST SINGLE (PORTABLE) 2019-11-06 17:27:00 [place] [address] Patient Name: GRICEL CALLAHAN MR #: [id number] : 1955 Age/Sex: 63/F Req #: [id number] Adm Physician: Ordered by: NADINE MERINO MD Report #: [id number] Location: ER Room/Bed: Procedure: [id number] DX/CHEST SINGLE (PORTABLE) Exam Date: 11/06/19 Exam Time: 1627 REPORT STATUS: Signed EXAMINATION: CHEST SINGLE (PORTABLE) INDICATION: Cough for one week. COMPARISON: None FINDINGS: Examination is limited by low lung volumes and underpenetration. TUBES and LINES: None. LUNGS: There is diffuse hazy opacification of the bilateral lung bases. PLEURA: No pleural effusion or pneumothorax. HEART AND MEDIASTINUM: The cardiomediastinal silhouette is unremarkable. BONES AND SOFT TISSUES: No acute osseous lesion. Soft tissues are unremarkable. UPPER ABDOMEN: No free air under the diaphragm. IMPRESSION: Diffuse hazy opacification of the bilateral lung bases which may be due to image technique. Superimposed infectious process cannot be excluded. Recommend repeat examination in AP and lateral projections with improved lung aeration. Signed by: Bernadine Ayon MD on 11/06/2019 5:36 PM Dictated By: BERNADINE AYON MD 35 Transcribed By: LUCY on 11/06/191735 COPY TO: NADINE MERINO MD [U] XRAY KNEE 1 OR 2 VWS LEFT [id number] 2019-03-26 12:02:00 Images acquired, not reported on this accession number. [facility] [] CALCIUM 2018-06-30 10:55:00 Test Item CALCIUM (test code = CALCIUM) 9.5 mg/dl 8.6-10.4 N [facility][] PROCOLLAGEN TYPE I INTACT N TERMINAL [id number] 10:55:00* Test Item Value Reference Range Interpretation Comments PROCOLLAGEN TYPE I INTACT N TERMINAL PRO PEPTIDE (test code = PROCOLLAGEN TYPE I INTACT N TERMINAL PROPEPTIDE) 71 {mcg/L} *Unable to flag abnormal result(s), please refer to reference range(s) below: Reference range(s): Female: <20 years: Not established 20-45 years: 22 - 104 mcg/L 46-60 years: 20 - 108 mcg/L >60 years: Not established [facility][U] XRAY KNEE 1 OR 2 VWS LEFT [id number] 10:42:00Images acquired, not reported on this accession number.[facility][] XRAY KNEE 1 OR 2 VWS LEFT [id number] 13:46:00Images acquired, not reported on this accession number.[facility] [[facility]] [id number] 07:57:00* Test Item Value Reference Range Interpretation Comments MAGNESIUM (test code = MAGNESIUM) 1.6 mg/dl 1.5-2.5 N [facility]] PHOSPHATE ( PHOSPHORUS)2017-10-31 07:57:00 * Test Item Value Reference Range Interpretation Comments PHOSPHATE ( PHOSPHORUS) (test code = PHOSPHATE ( PHOSPHO NOMAN)) 2.5 mg/dl 2.5-4.5 N [facility][] PROCOLLAGEN TYPE I INTACT N TERMINAL [id number] 07:57:00* Test Item Value Reference Range Interpretation Comments PROCOLLAGEN TYPE I INTACT N TERMINAL PRO PEPTIDE (test code = PROCOLLAGEN TYPE I INTACT N TERMINAL PROPEPTIDE) 76 {mcg/L} *Unable to flag abnormal result(s), please refer to reference range(s) below: Reference range(s): Female: <20 years: Not established 20-45 years: 22 - 104 mcg/L 46-60 years: 20 - 108 mcg/L >60 years: Not established [facility]] ALKALINE PHOSPHATASE, BONE SPECIFIC 2017-10-31 07:57:00* Test Item Value Reference Range Interpretation Comments BONE SPECIFIC (test code = BONE SPECIFIC) 18.3 {mcg/L} 5.6-29.0 [facility][] C TELOPEPTIDE (CTX)2017-10-31 07:57:00* Test Item Value Reference Range Interpretation Comments C TELOPEPTIDE (CTX) (test code = C TELOPEPTIDE (CTX)) 308 pg/ml Reference Range:NOT ESTABLISHED Adult Female Reference Ranges for C-Telopeptide (CTx): 18-29 years: 64-640 pg/mL 30-39 years: 60-650 pg/mL 40-49 years: 40- 465 pg/mL >49 years: Not Established No reference range is provided for postmenopausal womenbecause of the increased rate of bone turnoverpost- menopause. It is recommended that results forpostmenopausal women be compared to the premenopausalreference range as this will give a better indication oftheir rate of bone loss. [facility]] TSH, 3RD GENERATION W/REFLEX TO FT4 2017-10-31 07:57:00* Test Item Value Reference Range Interpretation Comments TSH, 3RD GENERATION W/REFLEX TO FT4 (evert t code = TSH, 3RD GENERATION W/REFLEX TO FT4) 2.29 {MIU/L} 0.40-4.50 N [facility][U] XRAY KNEE 1 OR 2 VWS LEFT [id number] 13:19:00Images acquired, not reported on this accession number.[facility][U] XRAY KNEE 1 OR 2 VWS LEFT [id number] 12:52:00Images acquired, not reported on this accession number.[facility] FOOT LEFT [facility] [address] [place] [address] Patient Name: GRICEL CALLAHAN MR #: [id number] : 1955 Age/Sex: 61/F Req #: [id number] [facility] Physician: Ordered by: JUAN BAH Report #: [id number] Location: ER Room/Bed: Procedure: [id number] DX/FOOT LEFT COMPLETE Exa m Date: 01/12/17 Exam Time: 1210 REPORT STATUS: Signed PROCEDURE: X-RAY LEFT FOOT, COMPLETE COMPARISON: None. INDICATIONS: HORSE STEPPED ON LEFT FOOT FINDINGS: No acute, displ aced fracture or dislocation. Appropriate alignment between the medial cuneif orm and second metatarsal base in keeping with an intact Lisfranc ligament. Scattered foci of degenerative joint disease throughout the midfoot and forefoot. Degenerative plantar and posterior calcaneal spur. Soft tissues are grossly unremarkable. CONCLUSION: No acute osseous abnormality. Dictated by: Carlyle Campa M.D. on 01/12/2017 at 12:40 Electronically ap proved by: Carlyle Campa M.D. on 01/12/2017 at 12:40 Dictated By: Sandy CAMPA MD 1240 Tr anscribed By: ELIZABETH on 01/12/17 1240 COPY TO: JUAN BAH
[2019-11-28 19:13] LABS: ALBUMIN 3.8 g/dL (3.5-5.0); ANION GAP 15.1 mmol/L (8-16); CALCIUM 9.4 mg/dL (8.4-10.2); CREATININE, SERUM 1.08 mg/dL (0.57-1.11); POTASSIUM 4.1 mmol/L (3.5-5.1)
[2019-11-28] MEDS ORDERED: SODIUM CHLORIDE 0.9% 50ML 50 ML ONE (19:58)
[2019-11-28] MEDS ORDERED: IOPAMIDOL 370 MG/ML 200 ML INFUS..BTL INJ ONE (19:58)
--- NOTE | 2019-11-28 20:31 | Diagnostic Imaging Report ---
EXAMINATION: CT scan of the chest with contrast. TECHNIQUE: Helical CT images of the chest were performed from the lung apices to the level of the adrenal glands after the intravenous administration of 100 cc of Omnipaque 300. Coronal and sagittal reformatted images were obtained. Dose modulation, iterative reconstruction, and/or weight based adjustment of the mA/kV was utilized to reduce the radiation dose to as low as reasonably achievable. COMPARISON: None. CLINICAL HISTORY:Possible pneumonia, hypoxia DISCUSSION: LINES/TUBES: None. LUNGS AND AIRWAYS: 6 mm left lower lobe pulmonary nodule. 3 mm right upper lobe pulmonary nodule. PLEURA: No pneumothorax or pleural effusions. HEART AND MEDIASTINUM: The thyroid gland is normal. The heart and pericardium are within normal limits. LYMPH NODES: There is no mediastinal, hilar or axillary lymphadenopathy. ABDOMEN: 5.5 cm hypodensity in the peripheral aspect of the right hepatic lobe. Smaller adjacent hypodensity posteriorly measuring 1.5 cm. Cirrhotic morphology. Cholecystectomy. BONES AND SOFT TISSUES: No acute bony abnormalities. IMPRESSION: No pulmonary embolism. 2 pulmonary nodules measuring up to 6 mm in the left lower lobe. Cirrhotic liver morphology with 2 hypodensities right lobe measuring up to 5.4 cm. Nonemergent MRI of the abdomen with contrast recommended. Signed by: Dr. Ramone Mejia M.D. on 11/28/2019 8:28 PM
--- OUTSIDE RECORDS SUMMARY | 2019-11-28 21:44 | XMS REPORT | Continuity of Care Document ---
Author Author [facility] t Organization [facility] Address [address] [place] [address] Phone Unavailable Care Team Providers Care Piggyback Clerk Name Role Phone NO, PCP PCP Unavailable LENNY WINSTON Attphys Unavailable Jerrod MERINO Attphys Unavailable CORINNE CAMARGO P.A. Attphys Unavailable RINKU GILMORE PA Attphys Unavailable Alfonso Mendosa M.D. Attphys Unavailable Tristen SHAVER Attphys Unavailable Payers Payer Name Policy Type Policy Number Effective Date Expiration Date S ource Medicare A & B [id number] 2008 00:00:00 [facility] [id number] [facility] Problems Condition Name Condition Details Condition Category Status Onset Date Resolution Date Last Treatment Date Treating Clinician Comments Source Abdominal pain Problem Active C [facility] Contusion of right foot Problem Active [facility] Closed fracture of left tibial plateau w ith routine healing, subsequent encounter Closed fracture of left tibial plateau w ith routine healing, subsequent encounter Problem Active [facility] Closed bicondylar fracture of left tibial plateau Clos ed bicondylar fracture of left tibial plateau Problem Active [facility] Osteoporosis Osteoporosis Problem Active [facility] Screening for endocrine, nutritional, metabolic and im munity disorder Screening for endocrine, nutritional, metabolic and immunity disorder Problem Active [facility] Allergies, Adverse Reactions, Alerts This patient has no known allergies or adverse reactions. Social History Social Habit Start Date Stop Date Quantity Comments Source Sex Assigned At 1955 00:00:00 1955 00:00:00 Female [facility] Medications Ordered Medication Name Filled Medication Name Start Date Stop Da te Current Medication? Ordering Clinician Indication Dosage Frequency Signature (SIG) Comments Components Source Vitamin D (Ergocalciferol) 1.25 MG (64676 [place]) Oral Cap sunny Vitamin D (Ergocalciferol) 1.25 MG (47502 [place]) Oral Capsule 2019-01-01 00:00:00 Yes RINKU ENGLAND 1 TAKE 1 CAPSULE WEEKLY [facility] Forteo 600 MCG/2.4ML SOLN Forteo 600 MCG/2.4ML SOLN 2018-01-16 00:00: 00 Yes CORINNE CAMARGO P.AMargareth QD INJECT 20 MCG. SUBCUTANEOUSLY ONCE DAILY DIRECTED. [facility] Cephalexin 500 MG Oral Capsule Cephalexin 500 MG Oral Capsul e 2017-11-28 00:00:00 Yes RIKNU ENGLAND Q0.25D TAKE 1 CAPSULE 4 TI MES DAILY. [facility] Sulfamethoxazole-Trimethoprim 800-160 MG Oral Tablet S ulfamethoxazole- Trimethoprim 800-160 MG Oral Tablet 2017-10-10 00:00:00 Yes RINKU ENGLAND 1 Q0.5D TAKE 1 TABLET TWICE DAILY [facility] Atenolol Atenolol Yes 25 Daily [facility] Cyclobenzaprine Hcl (Flexeril) 5 Mg TABLET Cyclobenzap rine Hcl (Flexeril) 5 Mg TABLET Yes 5 Qd-Bid [facility] Gabapentin Gabapentin Yes 300 Three Times A Day [facility] Glyburide/Metformin Hcl (Glucovance 2.5-500 Mg Tablet) 1 Each TABLET Glyburide/Metformin Hcl (Glucovance 2.5-500 Mg Tablet) 1 Each TABLET Yes Twice A Day [facility] Hydrocodone Bit/Acetaminophen ([place] 7.5-325 Tablet) 1 Each TABLET Hydrocodone Bit/Acetaminophen ([place] 7.5-325 Tablet) 1 Each TABLET Yes 1 Twice A Day as needed for Pain [facility] Insulin Glargine (Lantus) 100 Units/Ml ML Insulin Glar gine (Lantus) 100 Units/Ml ML Yes 70 Bedtime [facility] Levothyroxine Sodium (Synthroid) 50 Mcg TAB Levothyrox ine Sodium (Synthroid) 50 Mcg TAB Yes 50 Daily [facility] Losartan Potassium (Cozaar) 25 Mg TABLET Losartan Pota ssium (Cozaar) 25 Mg TABLET Yes 25 Twice A Day [facility] Omeprazole Omeprazole Yes 20 Daily [facility] Oxybutynin Chloride (Ditropan Xl) 10 Mg TAB.ER.24 Oxyb utynin Chloride (Ditropan Xl) 10 Mg TAB.ER.24 Yes 10 Daily [facility] Simvastatin Simvastatin Yes 20 Bedtime [facility] Sitagliptin Phosphate (Januvia) 100 Mg TABLET Sitaglip tin Phosphate (Januvia) 100 Mg TABLET Yes 100 Daily [facility] Darifenacin Hydrobromide (Enablex) 7.5 Mg TAB.ER.24H D arifenacin Hydrobromide (Enablex) 7.5 Mg TAB.ER.24H 2016-10-05 00:00:00 No 7.5 Daily [facility] Ciprofloxacin Hcl (Cipro) 500 Mg TABLET Ciprofloxacin Hcl (C ipro) 500 Mg TABLET 2016-09-15 00:00:00 No 500 Every 12 Hours [facility] Citalopram Hydrobromide (Citalopram Hbr) 20 Mg TABLET Citalopram Hydrobromide (Citalopram Hbr) 20 Mg TABLET 2016-09-15 00:00:00 No 20 Daily [facility] Doxycycline Hyclate Doxycycline Hyclate 2016-09-15 00:00:00 No 100 Every 12 Hours [facility] Atenolol Atenolol 2014-04-04 00:00:00 No Daily [facility] Cyclobenzaprine Hcl (Flexeril) 5 Mg TABLET Cyclobenzap rine Hcl (Flexeril) 5 Mg TABLET 2014-04-04 00:00:00 No 5 Daily [facility] Darifenacin Hydrobromide (Enablex) 7.5 Mg TAB.ER.24H D arifenacin Hydrobromide (Enablex) 7.5 Mg TAB.ER.24H 2014-04-04 00:00:00 No 7.5 Daily [facility] Glyburide/Metformin Hcl (Glyburide-Metformin 2.5-500 M g) 1 Each TABLET Glyburide/Metformin Hcl (Glyburide-Metformin 2.5-500 Mg) 1 Each TABLET 2014-04-04 00:00:00 No Twice A Day [facility] Humalog 70-80 U Q Hs Humalog 70-80 U Q Hs 2014-04-04 00:00:00 No [facility] Hydrocodone Bit/Acetaminophen (Hydrocodon-Acetaminophe n 5-500) 1 Each CAPSULE Hydrocodone Bit/Acetaminophen (Hydrocodon-Acetaminophen 5-500) 1 Each CAPSULE 2014-04-04 00:00:00 No Twice A Day [facility] Levothyroxine Levothyroxine 2014-04-04 00:00:00 [facility] Losartan Potassium Losartan Potassium 2014-04-04 00:00:00 No 25 Daily [facility] Risedronate Sodium (Actonel) 150 Mg TABLET Risedronate Sodium (Actonel) 150 Mg TABLET 2014-04-04 00:00:00 No 150 Daily [facility] Vital Signs Vital Name Observation Time Observation Value Comments Source Body Temperature 2019-11-06 19:20:00 97.0 [degF] [facility] Weight 2019-11-06 15:49:00 195 [lb_av] [facility] BMI (Body Mass Index) 2019-11-06 15:49:00 31.5 kg/m2 [facility] Procedures Procedure Date / Time Performed Performing Clinician Sourc e CT Knee without contrast [id number] 2019-04-10 00:00:00 [facility] CT Tib Fib without contrast [id number] 2019-03-26 00:00:00 [facility] [U] XRAY KNEE 1 OR 2 VWS LEFT [id number] 2019-03-12 00:00:00 [facility] [Q] SED RATE BY MODIFIED ELIZA, MANUAL 2018-07-27 00:00:00 [facility] [QLH] CBC (INCLUDES DIFF/PLT) 2018-07-27 00:00:00 [facility] [QLH] C-REACTIVE PROTEIN 2018-07-27 00:00[facility]00 [facility]L] Vitamin D 25-Hydroxy, D2 + D3 2018-07-27 00:00:00 [facility] [QH] CALCIUM 2018-06-30 00:00:00 [facility] [Q] PROCOLLAGEN TYPE I INTACT N TERMINAL PROPEPTIDE 2018-06-30 0 0:00:00 [facility] [U] XRAY KNEE 1 OR 2 VWS LEFT [id number] 2018-06-20 00:00:00 [facility] [Q] PROCOLLAGEN TYPE I INTACT N TERMINAL PROPEPTIDE 2018-03-24 0 0:00:00 [facility] [QH] CALCIUM 2018-03-24 00:00:00 [facility] [QL] PHOSPHATE ( PHOSPHORUS) 2018-03-24 00:00:00 [facility] [QL] MAGNESIUM 2018-03-24 00:00:00 [facility] [U] XRAY KNEE 1 OR 2 VWS LEFT [id number] 2018-03-23 00:00:00 [facility] [U] XRAY KNEE 1 OR 2 VWS LEFT [id number] 2018-01-13 00:00:00 [facility] [U] XRAY KNEE 1 OR 2 VWS LEFT [id number] 2017-12-01 00:00:00 [facility] [Q] PROCOLLAGEN TYPE I INTACT N TERMINAL PROPEPTIDE 2017-11-18 0 0:00:00 [facility] [QH] CALCIUM 2017-11-18 00:00:00 [facility] [U] XRAY KNEE 1 OR 2 VWS LEFT [id number] 2017-11-18 00:00:00 [facility] [O] Dexa Scan (Dual Energy X-Ray) [id number] 3039-07-25 00:00:00 [facility] [O] Dexa Scan (D[employer] Energy X-Ray) [id number] 7632-07-02 00:00:00 [facility] Plan of Care Planned Activity Planned Date Details Comments Source Diagnostic Test Pending 2018-06-23 00:00:00 [Q] PROCOLLAGEN TYPE I INTACT N TERMINAL PROPEPTIDE [code = [Q] PROCOLLAGEN TYPE I INTACT N TERMINAL PROPEPTIDE] [facility] Diagnostic Test Pending 2018-06-23 00:00:00 [QH] CALCIUM [code = [QH] CALCIUM] [facility] Diagnostic Test Pending 2018-06-23 00:00:00 [QLH] PHOSPHATE ( PHOSPHORUS) [code = [QLH] PHOSPHATE ( PHOSPHORUS)] [facility] Diagnostic Test Pending 2018-06-23 00:00:00 [QLH] MAGNESIUM [code = [QLH] MAGNESIUM] [facility] Diagnostic [facility] Pending 2018-02-18 00:00:00 [Q] PROCOLLAGEN TYPE I INTACT N TERMINAL PROPEPTIDE [code = [Q] PROCOLLAGEN TYPE I INTACT N TERMINAL PROPEPTIDE] [facility] Diagnostic Test Pending 2018-02-18 00:00:00 [QH] CALCIUM [code = [QH] CALCIUM] [facility] Diagnostic Test Pending 2018-02-18 00:00:00 [Q] PROCOLLAGEN TYPE I INTACT N TERMINAL PROPEPTIDE [code = [Q] PROCOLLAGEN TYPE I INTACT N TERMINAL PROPEPTIDE] [facility] Diagnostic Test Pending 2018-02-18 00:00:00 [QH] CALCIUM [code = [QH] CALCIUM] [facility] Instructions COVID-19: 07/09/2019 [facility] Instructions Bronchitis (Acute) - Adult C [facility] Encounters Start Date/Time End Date/Time Encounter Type Admission Type [facility] Care Department Encounter ID Source 2019-11-06 16:24:00 2019-11-06 19:29:00 Departed Emergency Room 1 NADINE MERINO [facility] [id number] [facility] 2019-05-04 10:30:00 2019-05-04 10:30:00 Appointment; DIANE CAMARGO P.A. YAZDANI, CHRISTINA, P.A. [facility]TP [id number] [facility] 2019-03-26 12:00:00 2019-03-26 12:00:00 Appointment; RINKU GILMORE PA HANSEN, DENISE, PA [facility] [id number] [facility] 2019-01-01 12:00:00 2019-01-01 12:00:00 Appointment; RINKU GILMORE PA HANSEN, DENISE, PA [facility] [id number] [facility] 2018-06-30 10:30:00 2018-06-30 10:30:00 Appointment; DIANE CAMARGO P.A. YAZDANI, CHRISTINA, P.A. [facility] Orthopedics [id number] [facility] 2018-06-26 10:45:00 2018-06-26 10:45:00 Appointment; RINKU GILMORE PA HANSEN, DENISE, PA [facility] Orthopedics [id number] [facility] 2018-03-27 13:15:00 2018-03-27 13:15:00 Appointment; RINKU GILMORE PA HANSEN, DENISE, PA [facility] Orthopedics [id number] [facility] 2018-03-24 10:30:00 2018-03-24 10:30:00 Appointment; DIANE CAMARGO P.A. YAZDANI, CHRISTINA, PHans [facility] Orthopedics [id number] [facility] 2018-02-27 13:00:00 2018-02-27 13:00:00 Appointment; RINKU GILMORE PA HANSEN, DENISE, PA [facility] [id number] [facility] 2018-01-23 13:30:00 2018-01-23 13:30:00 Appointment; RINKU GILMORE PA HANSEN, DENISE, PA [facility] Orthopedics [id number] [facility] 2017-12-12 13:30:00 2017-12-12 13:30:00 Appointment; RINKU GILMORE PA HANSEN, DENISE, PA [facility] Orthopedics [id number] [facility] 2017-11-28 13:15:00 2017-11-28 13:15:00 Appointment; RINKU GILMORE PA HANSEN, DENISE, PA [facility] Orthopedics [id number] [facility] 2017-11-18 11:00:00 2017-11-18 11:00:00 Appointment; DIANE CAMARGO P.A. YAZDANI, CHRISTINA, [facility] Orthopedics [id number] [facility] 2017-10-31 13:15:00 2017-10-31 13:15:00 Appointment; RINKU GILMORE PA HANSEN, DENISE, PA [facility] UTP [id number] [facility] 2017-10-24 12:45:00 2017-10-24 12:45:00 Appointment; RINKU GILMORE PA HANSEN, DENISE, PA [facility] [id number] [facility] 2017-10-13 07:00:00 2017-10-13 07:00:00 Appointment; Alfonso Mendosa M.D. Achor, Timothy, M.D. [facility]TP [id number] [facility] 2017-10-10 12:45:00 2017-10-10 12:45:00 Appointment; RINKU GILMORE PA HANSEN, DENISE, PA [facility] [id number] [facility] Results Test Description Test Time Test Comments Results Result Comments Source CT CHEST W 2019-11-28 20:22:00 [place] [address] Patient Name: GRICEL CALLAHAN MR #: [id number] : 1955 Age/Sex: 63/F Req #: [id number] Adm Physician: Ordered by: LENNY WINSTON DO Report #: [id number] Location: ER Room/Bed: Procedure: [id number] CT/CT CHEST W Exam Date: Exam Time: REPORT STATUS: Signed EXAMINATION: CT scan of the chest with contrast. TECHNIQUE: Helical CT images of the chest were performed from the lung apices to the level of the adrenal glands after the intravenous administration of 100 cc of Omnipaque 300. Coronal and sagittal reformatted images were obtained. Dose modulation, iterative reconstruction, and/or weight based adjustment of the mA/kV was utilized to reduce the radiation dose to as low as reasonably achievable. COMPARISON: None. CLINICAL HISTORY:Possible pneumonia, hypoxia DISCUSSION: LINES/TUBES: None. LUNGS AND AIRWAYS: 6 mm left lower lobe pulmonary nodule. 3 mm right upper lobe pulmonary nodule. PLEURA: No pneumothorax or pleural effusions. HEART AND MEDIASTINUM: The thyroid gland is normal. The heart and pericardium are within normal limits. LYMPH NODES: There is no mediastinal, hilar or axillary lymphadenopathy. ABDOMEN: 5.5 cm hypodensity in the peripheral aspect of the right hepatic lobe. Smaller adjacent hypodensity posteriorly measuring 1.5 cm. Cirrhotic morphology. Cholecystectomy. BONES AND SOFT TISSUES: No acute bony abnormalities. IMPRESSION: No pulmonary embolism. 2 pulmonary nodules measuring up to 6 mm in the left lower lobe. Cirrhotic liver morphology with 2 hypodensities right lobe measuring up to 5.4 cm. Nonemergent MRI of the abdomen with contrast recommended. Signed by: Dr. Geni Becerril M.D. on 11/28/2019 8:28 PM Dictated By: GENI BECERRIL MD 27 Transcribed By: LUCY on 11/28/192027 COPY TO: LENNY WINSTON DO CHEST SINGLE (PORTABLE) 2019-11-28 18:46:00 [place] [address] Patient Name: GRICEL CALLAHAN MR #: [id number] : 1955 Age/Sex: 63/F Req #: [id number] Adm Physician: Ordered by: LENNY WINSTON DO Report #: [id number] Location: ER Room/Bed: Procedure: [id number] DX/CHEST SINGLE (PORTABLE) Exam Date: 11/28/19 Exam Time: 1818 REPORT STATUS: Signed Examination: Single AP view [...] LUCY on 11/28/191846 COPY TO: LENNY WINSTON DO CHEST SINGLE (PORTABLE) 2019-11-06 17:27:00 [place] [address] Patient Name: GRICEL CALLAHAN MR #: [id number] : 1955 Age/Sex: 63/F Req #: [id number] Adm Physician: Ordered by: NADINE MERINO MD Report #: [id number] Location: ER Room/Bed: Procedure: [id number] DX/CHEST SINGLE (PORTABLE) Exam Date: 11/06/19 Exam [...] XRAY KNEE 1 OR 2 VWS LEFT [id number] 2019-03-26 12:02:00 Images acquired, not reported on this accession number. [facility] [] CALCIUM 2018-06-30 10:55:00 Test Item CALCIUM (test code = CALCIUM) 9.5 mg/dl 8.6-10.4 N [facility][] PROCOLLAGEN TYPE I INTACT N TERMINAL [id number] 10:55:00* Test Item Value Reference Range Interpretation Comments PROCOLLAGEN TYPE I INTACT N TERMINAL PRO PEPTIDE (test code = PROCOLLAGEN TYPE I INTACT N TERMINAL PROPEPTIDE) 71 {mcg/L} *Unable to flag abnormal result(s), please refer to reference range(s) below: Reference range(s): Female: <20 years: Not established 20-45 years: 22 - 104 mcg/L 46-60 years: 20 - 108 mcg/L >60 years: Not established [facility][U] XRAY KNEE 1 OR 2 VWS LEFT [id number] 10:42:00Images acquired, not reported on this accession number.[facility][U] XRAY KNEE 1 OR 2 VWS LEFT [id number] 13:46:00Images acquired, not reported on this accession number.[facility] [[facility]] [id number] 07:57:00* Test Item Value Reference Range Interpretation Comments MAGNESIUM (test code = MAGNESIUM) 1.6 mg/dl 1.5-2.5 N [facility]] PHOSPHATE ( PHOSPHORUS)2017-10-31 07:57:00 * Test Item Value Reference Range Interpretation Comments PHOSPHATE ( PHOSPHORUS) (test code = PHOSPHATE ( PHOSPHO NOMAN)) 2.5 mg/dl 2.5-4.5 N [facility][Q] PROCOLLAGEN TYPE I INTACT N TERMINAL [id number] 07:57:00* Test Item Value Reference Range Interpretation Comments PROCOLLAGEN TYPE I INTACT N TERMINAL PRO PEPTIDE (test code = PROCOLLAGEN TYPE I INTACT N TERMINAL PROPEPTIDE) 76 {mcg/L} *Unable to flag abnormal result(s), please refer to reference range(s) below: Reference range(s): Female: <20 years: Not established 20-45 years: 22 - 104 mcg/L 46-60 years: 20 - 108 mcg/L >60 years: Not established [facility]] ALKALINE PHOSPHATASE, BONE SPECIFIC 2017-10-31 07:57:00* Test Item Value Reference Range Interpretation Comments BONE SPECIFIC (test code = BONE SPECIFIC) 18.3 {mcg/L} 5.6-29.0 [facility][Q] C TELOPEPTIDE (CTX)2017-10-31 07:57:00* Test Item Value [...] better indication oftheir rate of bone loss. [facility]] TSH, 3RD GENERATION W/REFLEX TO FT4 2017-10-31 07:57:00* Test Item Value Reference Range Interpretation Comments TSH, 3RD GENERATION W/REFLEX TO FT4 (evert t code = TSH, 3RD GENERATION W/REFLEX TO FT4) 2.29 {MIU/L} 0.40-4.50 N [facility][U] XRAY KNEE 1 OR 2 VWS LEFT [id number] 13:19:00Images acquired, not reported on this accession number.[facility][U] XRAY KNEE 1 OR 2 VWS LEFT [id number] 12:52:00Images acquired, not reported on this accession number.[facility] FOOT LEFT COMPLETE [facility] [address] [address] Patient Name: GRICEL CALLAHAN MR #: [id number] : 1955 Age/Sex: 61/F Req #: [id number] Adm Physician: Ordered by: JUAN BAH Report #: [id number] Location: ER Room/Bed: Procedure: [id number] DX/FOOT LEFT COMPLETE Exa m Date: 01/12/17 [...]
[2019-11-28 22:08] LABS: CREATINE KINASE MB 0.9 ng/mL (0-5.0)
--- NOTE | 2019-11-28 22:10 | NUR ---
RECEIVED PT BY WHEELCHAIR TO ROOM 185, PT IS AAOX3, RR EVEN AND NON-LABORED, O2 BY NC AT 2L. NO S/SX OF DISTRESS NOTED. PT ASSISTED TO BATHROOM AND BACK TO BED. STEADY GAIT NOTED. ORIENTED PT TO CALL LIGHT, PHONE, BED CONTROLS, LIGHTS, AND HOSPITAL POLICY. LEFT PT LAYING SEMI FOWLERS IN BED,BED IN LOW LOCKED POSITION, SIDE RAILS UPX2, CALL LIGHT AND PHONE WITHIN REACH.
[2019-11-28] MEDS: SODIUM CHLORIDE 0.9% 1000ML 1,000 ML IV SCH (22:25)
[2019-11-28 23:15] VITALS: BP 137/58
[2019-11-28 23:23] VITALS: BP 137/58
[2019-11-29] VITALS (9 sets, daily range): BP systolic 121–160; BP diastolic 52–72
[2019-11-29] MEDS: SODIUM CHLORIDE 0.9% 1000ML 1,000 ML IV SCH ×2 (05:19→18:48)
[2019-11-29 05:38] LABS: BASOPHILS % 0.6 % (0.0-1.0); EOSINOPHILS # (AUTO) 0.1 (0.0-0.4); EOSINOPHILS % 2.8 % (0.0-6.0); HEMOGLOBIN 13.3 g/dL (12.0-16.0); LYMPHOCYTES # (AUTO) 2.1 (1.0-3.2); LYMPHOCYTES % 42.6 % (18.0-39.1); MEAN CORPUSCULAR HGB CONC 34.1 g/dL (31-35); MEAN CORPUSCULAR VOLUME 90.9 fL (81-99); MONOCYTES # (AUTO) 0.4 (0.2-0.8); MONOCYTES % 8.1 % (4.4-11.3); NEUTROPHILS # (AUTO) 2.3 (2.1-6.9); NEUTROPHILS % 45.5 % (38.7-80.0); PLATELET COUNT 118 x10e3/uL (140-360); RED BLOOD COUNT 4.29 x10e6/uL (3.6-5.1); RED CELL DISTRIBUTION WIDTH 12.3 % (11.7-14.4)
[2019-11-29 05:58] LABS: ALANINE AMINOTRANSFERASE 28 IU/L (0-55); ALBUMIN 3.5 g/dL (3.5-5.0); ALKALINE PHOSPHATASE 101 IU/L (40-150); ANION GAP 12.1 mmol/L (8-16); BLOOD UREA NITROGEN 6 mg/dL (7-26); BUN/CREATININE RATIO 8 (6-25); CALCIUM 9.1 mg/dL (8.4-10.2); CARBON DIOXIDE 28 mmol/L (22-29); CHLORIDE 104 mmol/L (98-107); CREATININE, SERUM 0.74 mg/dL (0.57-1.11); EST GLOMERULAR FILTRATION RATE > 60 ML/MIN (60-); GLUCOSE 257 mg/dL (74-118); POTASSIUM 4.1 mmol/L (3.5-5.1); SODIUM 140 mmol/L (136-145)
[2019-11-29 06:21] LABS: CREATINE KINASE MB 0.8 ng/mL (0-5.0)
[2019-11-29] MEDS ORDERED: ALBUTEROL SULFATE HFA 8GM INHALATION AEROSOL INH PRN ×2 (07:00→14:45)
[2019-11-29] MEDS ORDERED: NON-FORMULARY MEDICATION (Cyclobenzaprine Hcl (Flexeril) 5 MG) PO SCH (07:15)
[2019-11-29] MEDS ORDERED: HYDROCODONE/APAP 7.5MG-325MG 1 EA TAB PO PRN (07:15)
[2019-11-29] MEDS: CEFTRIAXONE SOD 1 GM/NS 50 ML 50 ML IV SCH (08:29)
[2019-11-29] MEDS: OXYBUTYNIN CHLORIDE XL 5 MG TAB PO SCH (08:30)
[2019-11-29] MEDS: PANTOPRAZOLE SOD 40 MG TABEC PO SCH (08:30)
[2019-11-29] MEDS: GABAPENTIN 300 MG CAP PO SCH ×3 (08:30→20:58)
[2019-11-29] MEDS: LOSARTAN POTASSIUM 25 MG TAB PO SCH ×2 (08:30→17:28)
[2019-11-29] MEDS: SITAGLIPTIN 100 MG TAB PO SCH (08:30)
[2019-11-29] MEDS: LEVOTHYROXINE SODIUM 50 MCG TAB PO SCH (08:30)
[2019-11-29] MEDS ORDERED: DEXTROSE 50% SYRINGE 50 ML IV PRN (08:45)
[2019-11-29] MEDS: ATENOLOL 50 MG TAB PO SCH (08:52)
--- NOTE | 2019-11-29 10:52 | History and Physical ---
CHIEF COMPLAINT: A 63-year-old lady with history of cough and congestion. HISTORY OF PRESENTING ILLNESS: Ms. Kayleen Esquivel with a history of diabetes mellitus, hypertension, and hyperlipidemia, has seen coughing for the last month. She has been tested three times and one time here for COVID-19 and she has been a person of investigation for COVID-19. Currently, the test has come back negative. She will be transferred to the floor. PAST MEDICAL HISTORY: History of hypertension, history of hyperlipidemia, history of hypothyroidism, history of reflux esophagitis, history of chronic low back pain, and history of chronic cough. PAST SURGICAL HISTORY: History of cholecystectomy, history of right foot surgery, and also lower extremity surgeries, otherwise negative. REVIEW OF SYSTEMS: Negative for chest pain. Positive for some shortness of breath. Positive for cough. No nausea. No vomiting. No diarrhea. No constipation. No rectal bleeding. No hematochezia. No hematemesis. No blurry vision. No diplopia. FAMILY HISTORY: Positive for diabetes. ALLERGIES: NO RECORDED ALLERGIES. MEDICATIONS: The patient takes atenolol 25 mg daily, cyclobenzaprine 5 mg daily, gabapentin 300 mg 3 times a day, glyburide, metformin, Glucovance 2.5/500 three times a day, hydrocodone 7.5/325 q.6 hours, insulin glargine 70 units at nighttime, levothyroxine 50 mcg daily in the morning, losartan 25 mg daily, omeprazole 20 mg daily, oxybutynin 10 mg daily, simvastatin 20 mg, and sitagliptin 100 mg daily. PHYSICAL EXAMINATION: GENERAL: The patient is alert and oriented x3. Cough is on deep inspiration. VITAL SIGNS: Temperature is 97.4, pulse of 69, respirations of 19, blood pressure is 160/94, and pulse oximetry of 96% on room air. HEENT: Normocephalic and atraumatic. Pupils are reactive to light and accommodation. CVS: S1 and S2 normal. Regular rate and rhythm. LUNGS: Clear. ABDOMEN: Soft, nontender, and nondistended. EXTREMITIES: No clubbing, no cyanosis, and no edema. Signs of surgical care on the lower extremities. LABORATORY VALUES: White count is 5.71, hemoglobin of 13.8, and hematocrit of 41.0. Chemistry shows sodium of 140, potassium of 4.1, BUN of 6, and creatinine 0.74. AST and ALT normal. Troponins have been trended to be negative too. MICROBIOLOGY: None done. IMAGING STUDIES: CT of the chest shows no pulmonary embolism. Two pulmonary nodules measuring 6 mm in the left lower lobe. Cirrhotic liver morphology with two hyperdensities right lobe measuring 5.5 cm. Nonemergent MRI of the abdomen with contrast is recommended. ASSESSMENT: 1. Ms. Kayleen Esquivel with cough and congestion, questionable pneumonia. Chest x-ray did not reveal any pneumonia, although we will hydrate the patient. Repeat a chest x-ray tomorrow. Bronchospasm. Start the patient on some Pulmicort 180 mg twice a day. This has been ordered. Rocephin and azithromycin have been started. Chest x-ray tomorrow. Troponins have been trended to be negative. 2. Diabetes. Continue her medications. 3. Hypertension. Continue her medicines. 4. Hyperlipidemia. Continue her medications. 5. Further recommendation per clinical course. Possible discharge tomorrow. Has to be seen by Pulmonology today. Also, the patient has been advised to come as an outpatient for an MRI of the liver for possible cirrhosis and also liver nodule for further assessment. MD VERN Livingston/MELISSA /[id number]
[2019-11-29] MEDS: INSULIN LISPRO 100 UNIT/1 ML 3ML VIAL SQ SCH ×3 (11:29→21:00)
[2019-11-29] MEDS ORDERED: CYCLOBENZAPRINE HCL 10 MG TAB PO PRN (14:15)
[2019-11-29] MEDS ORDERED: HYDROCODONE/CHLORPHENIRAMINE 5 ML LIQCR PO PRN (15:15)
[2019-11-29] MEDS ORDERED: METHYLPREDNISOLONE SOD SUCC 40 MG/ML VIAL 1ML IV ONE (16:00)
[2019-11-29] MEDS: BUDESONIDE 180MCG TUBUHALER INH SCH ×2 (16:04→20:17)
[2019-11-29] MEDS: FLUTICASONE PROPIONATE NASAL SPRAY NS SCH (17:00)
--- NOTE | 2019-11-29 17:01 | NUR ---
RECEIVED REPORT FROM LEE PICKENS FOR TRANSFER OF CARE. PT ARRIVED TO ROOM 203 VIA WHEELCHAIR. IN STABLE CONDITION.
[2019-11-29] MEDS: AZITHROMYCIN 500MG/NS 250 ML 250 ML IV SCH (17:28)
[2019-11-29] MEDS: SALINE 0.65% NAS SOLN 1 SPRAY BTL SCH ×2 (17:29→20:58)
[2019-11-29 18:12] LABS: CREATINE KINASE 56 IU/L (29-168)
--- NOTE | 2019-11-29 18:15 | Consultation ---
DATE OF CONSULTATION: Pulmonary Critical Care Consultation CHIEF COMPLAINT: Cough. HISTORY OF PRESENT ILLNESS: The patient is a 63-year-old woman. She has a history of hypertension and diabetes. She reports cough for 6 weeks. She notes some rhinorrhea and postnasal drainage. She occasionally clears her throat. She denies any prior history of asthma. She has not noted any wheezing. She has only mild dyspnea on exertion. The patient denies any acid reflux. She has no bad taste in her mouth. She has no sore throat. She was concerned about COVID and came to our emergency department. She had 2 negative tests. She also had a negative test within the last month prior to an epidural steroid injection. PAST SURGICAL HISTORY: 1. Status post cholecystectomy. 2. Prior foot surgery. 3. Prior procedures for chronic back pain. PAST MEDICAL HISTORY: 1. Hypertension. 2. Acid reflux, for which she is on Protonix. 3. History of lower back pain. FAMILY HISTORY: Family history is positive for diabetes. ALLERGIES: THERE ARE NO KNOWN DRUG ALLERGIES. SOCIAL HISTORY: The patient quit smoking 21 years ago. She is not an active drinker. REVIEW OF SYSTEMS: She denies fevers. She is not having headache. She does note some nasal drainage. She has no sore throat. She has no chest pain. She is not having any wheezing. She has mild dyspnea with exertion. There is no abdominal pain. She has no nausea or vomiting. She has no leg edema. PHYSICAL EXAMINATION: VITAL SIGNS: The blood pressure is 152/52 and the pulse is 70. Saturation is 98% on room air. The patient is afebrile. HEENT: Shows no facial swelling or erythema. LYMPHATIC: Shows no submandibular, cervical, or supraclavicular adenopathy. CARDIAC: Reveals regular rate and rhythm with normal S1 and S2. LUNGS: Auscultation of lungs reveals clear breath sounds bilaterally. There is no wheezing. ABDOMEN: Soft and nontender. There is no rebound or guarding. EXTREMITIES: Shows no leg edema or calf tenderness. There is no cyanosis or clubbing. SKIN: Shows no rashes. NEUROLOGICAL: Shows no focal abnormalities. LABORATORY DATA: White blood cell count is 4.9 and hemoglobin is 13.3. The platelet count is 118. The BUN to creatinine ratio is normal. The other electrolytes are within normal limits. RADIOGRAPHIC DATA: CT scan of the chest shows 2 small nodules, one is 6 mm in the left lower lobe and one is 3 mm in the right upper lobe. There are no infiltrates. There is no pulmonary embolism. There are 2 small hypodensities in the liver as well as some cirrhotic morphology. IMPRESSION: 1. Chronic cough, possibly related to rhinosinusitis and postnasal drainage. 2. Possible bronchospasm and cough. 3. Abnormal liver morphology on CT scan with nodules. 4. Two small lung nodules. The 6 mm lesion is in the indeterminate range and warrants a repeat CT scan in 6 months. PLAN: 1. Solu-Medrol IV x1 dose. 2. Afrin nasal spray for 3 days along with Flonase nasal spray. The patient should also have saline washes. 3. Solu-Medrol x1 dose. 4. Complete antibiotics. 5. Repeat CT scan of chest in 6 months. 6. Dedicated MRI or three phase CT scan to evaluate liver lesions along with Hepatology consultation. Miguel Hammond MD Bruce/MELISSA /[id number]
--- NOTE | 2019-11-29 20:50 | NUR ---
left message for Dr Maki to return regarding BS 372 and pt requesting trazadone 159mg for sleep.
[2019-11-29] MEDS: OXYMETAZOLINE HCL 0.05% NAS 1 SPRAY BTL SCH (20:58)
[2019-11-29] MEDS ORDERED: INSULIN GLARGINE 100 UNITS/ML VIAL SQ SCH (21:00)
[2019-11-29] MEDS ORDERED: SIMVASTATIN 20 MG TAB PO SCH (21:00)
--- NOTE | 2019-11-29 21:00 | NUR ---
Spoke to Dr. Maki. No new order for BS 372. states just to monitor but order given for trazadone 150mg PRN QHS
[2019-11-29] MEDS ORDERED: TRAZODONE HCL 50 MG TAB PO PRN (21:15)
[2019-11-30 04:28] VITALS: BP 122/51
[2019-11-30] MEDS: SALINE 0.65% NAS SOLN 1 SPRAY BTL SCH ×5 (05:48→17:15)
[2019-11-30] MEDS: LEVOTHYROXINE SODIUM 50 MCG TAB PO SCH (06:04)
--- NOTE | 2019-11-30 07:10 | NUR ---
PATIENT IS AWAKE, ALERT, AND IN STABLE CONDITION WITH NO S/S OF RESPIRATORY DISTRESS. NO PAIN VOICED. TELE APPLIED. IV FLUIDS INFUSING. CALL LIGHT IS WITHIN REACH, PATIENT INSTRUCTED TO CALL FOR ASSISTANCE NEEDED.
[2019-11-30] MEDS: INSULIN LISPRO 100 UNIT/1 ML 3ML VIAL SQ SCH ×3 (07:30→16:40)
[2019-11-30 07:40] VITALS: BP 132/57
[2019-11-30] MEDS: BUDESONIDE 180MCG TUBUHALER INH SCH (08:10)
[2019-11-30] MEDS: SITAGLIPTIN 100 MG TAB PO SCH (08:28)
[2019-11-30] MEDS: GABAPENTIN 300 MG CAP PO SCH ×2 (08:29→15:00)
[2019-11-30] MEDS: LOSARTAN POTASSIUM 25 MG TAB PO SCH ×2 (08:30→16:47)
[2019-11-30] MEDS: FLUTICASONE PROPIONATE NASAL SPRAY NS SCH ×2 (08:30→16:47)
[2019-11-30] MEDS: ATENOLOL 50 MG TAB PO SCH (08:30)
[2019-11-30] MEDS: PANTOPRAZOLE SOD 40 MG TABEC PO SCH (08:30)
[2019-11-30] MEDS: OXYMETAZOLINE HCL 0.05% NAS 1 SPRAY BTL SCH (08:30)
[2019-11-30] MEDS: OXYBUTYNIN CHLORIDE XL 5 MG TAB PO SCH (08:31)
[2019-11-30] MEDS: CEFTRIAXONE SOD 1 GM/NS 50 ML 50 ML IV SCH (08:35)
[2019-11-30] MEDS ORDERED: CYCLOBENZAPRINE HCL 10 MG TAB PO SCH (09:00)
[2019-11-30] MEDS ORDERED: PREDNISONE 5 MG TAB PO SCH (09:00)
--- NOTE | 2019-11-30 09:03 | Progress Note ---
DATE: SUBJECTIVE: 63-year-old lady who came in with acute bronchospasm whose PUI code has been ruled out. The patient is feeling better, scheduled for an MRI. Currently, better with antibiotics. No chest pain. No shortness of breath, slept well overnight. OBJECTIVE: VITAL SIGNS: Temperature is 97.3, pulse 68, respirations 16, blood pressure is 122/51, and pulse oximetry of 91% on nasal cannula. HEENT: Normocephalic and atraumatic. Pupils are reactive. CVS: S1 and S2 normal regular rhythm. ABDOMEN: Soft, nontender, and nondistended. LUNGS: few crackles present in the lower lung [place]. EXTREMITIES: No clubbing, no cyanosis, no edema. IMAGING: Chest CT from shows no pulmonary embolism, two pulmonary nodules and cirrhotic liver with two hyperdensities measuring about 5.5 cm. ASSESSMENT: Ms. Kayleen Esquivel with. 1. Bronchospasm. The patient is currently on Rocephin and azithromycin. We will continue monitoring her. Chest x-ray today to delineate any new onset pneumonia after hydration. 2. Diabetes. Continue medications. 3. Hypertension. Continue with the medication. The patient also has a questionable cirrhosis of the liver with two nodules. She needs a nonemergent MRI as an outpatient. Further recommendation per clinical course. We will continue to monitor the patient. If okay with Pulmonary, the patient can be discharged home today. Further recommendation per clinical course. MD VERN Livingston/MELISSA /[id number]
[2019-11-30 09:21] VITALS: BP 132/57
--- NOTE | 2019-11-30 10:39 | Diagnostic Imaging Report ---
EXAMINATION: CHEST 2 VIEWS INDICATION: Pneumonia COMPARISON: Chest CT 11/28/2019 FINDINGS: LINES/TUBES:EKG leads overlie the chest. LUNGS:The lungs are well-inflated. There is perihilar fullness and indistinctness of the pulmonary vasculature. PLEURA:No pleural effusion or pneumothorax. MEDIASTINUM:The cardiomediastinal silhouette appears normal in size and shape. BONES/SOFT TISSUES:No acute osseous injury. ABDOMEN:No free air under the diaphragm. IMPRESSION: No focal pneumonia or pulmonary edema. Signed by: Margy Samaniego MD on 11/30/2019 10:35 AM
[2019-11-30 11:20] VITALS: BP 113/54
[2019-11-30 15:47] VITALS: BP 139/46
[2019-11-30] MEDS: AZITHROMYCIN 500MG/NS 250 ML 250 ML IV SCH (17:12)
--- NOTE | 2019-11-30 17:41 | Consultation ---
DATE OF CONSULTATION: REASON FOR CONSULTATION: Pneumonia. HISTORY OF PRESENT ILLNESS: This is a 63-year-old white female with history of diabetes mellitus, obesity, hypertension, and hyperlipidemia. She was here in the hospital for pneumonia. She was here one month ago. She was diagnosed with pneumonia. She was discharged home. She is coming with cough. No shortness of breath, but persistent cough and not feeling well. Her COVID-19 at this time is negative. The patient was tested on November 27 which was negative. Her C difficile was negative. HIV was negative. LABORATORY DATA: Her sodium 140, potassium 4.1, creatinine 0.74. Liver enzyme within normal limits. Her white count is 5.7, hemoglobin is 4, platelet of 118, down from 147. She had a CT of the chest, which shows no pulmonary embolism. Two pulmonary nodules liver cirrhosis. PHYSICAL EXAMINATION: GENERAL: She is currently alert and oriented. VITAL SIGNS: Stable, currently afebrile. HEENT: She is not icteric. NECK: Supple. CHEST: Clear. HEART: S1, S2. No S3 or S4. ABDOMEN: Soft. Bowel sounds present. EXTREMITIES: No edema. SKIN: No rash. IMPRESSION: Cough, probably reactive airway disease. We will put her on albuterol. We will get ABG. We will obtain echocardiogram to rule out cardiac event. liver cirrhosis, thrombocytopenia due to that. We will discuss with the medical team. MD PAT Taylor/MELISSA /[id number]
[2019-11-30] MEDS ORDERED: PREDNISONE5 MG PO (18:07)
--- NOTE | 2019-11-30 19:10 | NUR ---
PATIENT IN STABLE CONDITION WITH NO S/S OF RESPIRATORY DISTRESS. NO PAIN VOICED. PATIENT IS DISCHARGING- WAITING FOR HER RIDE. IV REMOVED AT 1820 WITH TIP INTACT. TELE REMOVED. CALL LIGHT IS WITHIN REACH, PATIENT INSTRUCTED TO CALL FOR ASSISTANCE NEEDED. BEDSIDE SIDE SHIFT REPORT GIVEN TO ONCOMING NURSE.
--- NOTE | 2019-12-02 13:58 | Progress Note ---
DATE: 11/30/2019 SUBJECTIVE: Ms. Esquivel is doing better. There is no new complaint. PHYSICAL EXAMINATION: GENERAL: Currently alert, oriented. VITAL SIGNS: Stable, afebrile. HEENT: Not icteric. NECK: Supple. CHEST: Clear. IMPRESSION: Cough probably post bronchial reactive airway disease, could be discharged home with prednisone 5 mg p.o. daily for 5 days. MD PAT Taylor/MODL /[id number]
== END 2019-11-30 17:00 | disposition home or self-care (01) | DRG 203 ==
LOC: ER 18:56 → ERHOLD 21:36 → IMCU 22:24 → MED/SURG2 11-29 16:24
PROVIDERS: ADMIT Family Medicine; ATTEND Family Medicine
DX: J45.909 Unspecified asthma, uncomplicated (principal); I10 Essential (primary) hypertension; E11.9 Type 2 diabetes mellitus without complications; E78.5 Hyperlipidemia, unspecified; Z11.59 Encounter for screening for other viral diseases; J32.9 Chronic sinusitis, unspecified; R91.8 Other nonspecific abnormal finding of lung field; K74.60 Unspecified cirrhosis of liver; E03.9 Hypothyroidism, unspecified; K20.9 Esophagitis, unspecified; M54.5 Low back pain; G89.29 Other chronic pain
CPT/HCPCS: 36415; 71045; 71046; 71260; 80053; 82550; 82553; 82948; 84484; 85025; 99284; J0456; J0696; J1815; J2920; J7030; J7512; Q9967; U0002

== ENCOUNTER 2023-03-03 11:47 | Inpatient (IN) | payer MEDICARE, OTHER ==
[~2023-03-03] VITALS: Ht 167.6 cm; Wt 88.5 kg
[~2023-03-03 11:47] MED LIST changes: +PREDNISONE5 MG PO
[2023-03-03] MEDS ORDERED: IBUPROFEN 600 MG TAB PO STA (12:09)
[2023-03-03] MEDS ORDERED: TETANUS/DIPHTHERIA TOX ADULT 0.5 ML SYR IM ONE (13:00)
[2023-03-03 15:05] LABS: BASOPHILS % 0.4 % (0.0-1.0); EOSINOPHILS # (AUTO) 0.1 (0.0-0.4); HEMATOCRIT 39.3 % (34.2-44.1); HEMOGLOBIN 13.1 g/dL (12.0-16.0); LYMPHOCYTES # (AUTO) 1.9 (1.0-3.2); LYMPHOCYTES % 33.3 % (18.0-39.1); MEAN CORPUSCULAR HEMOGLOBIN 30.4 pg (28-32); MEAN CORPUSCULAR HGB CONC 33.3 g/dL (31-35); MEAN CORPUSCULAR VOLUME 91.2 fL (81-99); MONOCYTES # (AUTO) 0.5 (0.2-0.8); MONOCYTES % 8.7 % (4.4-11.3); NEUTROPHILS # (AUTO) 3.1 (2.1-6.9); NEUTROPHILS % 55.4 % (38.7-80.0); PLATELET COUNT 113 x10e3/uL (140-360); RED BLOOD COUNT 4.31 x10e6/uL (3.6-5.1); RED CELL DISTRIBUTION WIDTH 11.8 % (11.7-14.4); WHITE BLOOD COUNT 5.62 x10e3/uL (4.8-10.8)
[2023-03-03 15:18] LABS: INR 0.99; PROTHROMBIN TIME 13.3 seconds (11.9-14.5)
[2023-03-03 15:19] LABS: PARTIAL THROMBOPLASTIN TIME 27.5 seconds (23.8-35.5)
[2023-03-03 15:28] LABS: ALBUMIN 4.4 g/dL (3.5-5.0); ALBUMIN/GLOBULIN RATIO 1.3 (0.8-2.0); ANION GAP 17.2 mmol/L (8-16); BILIRUBIN,TOTAL 0.5 mg/dL (0.2-1.2); CREATININE, SERUM 0.8 mg/dL (0.57-1.11); POTASSIUM 4.2 mmol/L (3.5-5.1); TOTAL PROTEIN 7.7 g/dL (6.5-8.1)
[2023-03-03] MEDS ORDERED: DEXTROSE 50% SYRINGE 50 ML IV STA (15:32)
[2023-03-03] MEDS ORDERED: TETANUS/DIPHTHERIA TOX ADULT 0.5 ML SYR ONE (16:14)
[2023-03-03] MEDS: ONDANSETRON HCL INJ 2MG/ML 2ML 2 MG/ML VIAL IV PRN (16:18)
[2023-03-03] MEDS: Morphine 4mg INJECTION 4 MG/ML INJ IV PRN (16:19)
[2023-03-03 18:50] VITALS: BP 140/50; PULSE 84; RESP 20; TEMP 97.8; O2SAT 96
[2023-03-03 18:59] LABS: BILIRUBIN,URINE NEGATIVE (NEGATIVE); CLARITY,URINE CLEAR (CLEAR); COLOR,URINE YELLOW (YELLOW); GLUCOSE, URINE 500 (NEGATIVE); KETONES,URINE NEGATIVE (NEGATIVE); LEUKOCYTE ESTERASE ,URINE NEGATIVE (NEGATIVE); NITRITE,URINE NEGATIVE (NEGATIVE); PH,URINE 5.5 (5 - 7); PROTEIN,URINE DIPSTICK NEGATIVE (NEGATIVE); URINE UROBILINOGEN 0.2 mg/dL (0.2 - 1)
[2023-03-03] MEDS ORDERED: ACETAMINOPHEN 325 MG TAB PO PRN (19:00)
[2023-03-03 19:09] LABS: EPITHELIAL CELLS,URINE MODERATE /LPF; WBC,URINE (MAN) 0-5 /HPF (0-5)
[2023-03-03 20:00] VITALS: BP 135/51; PULSE 73; RESP 18; TEMP 97.7; O2SAT 97
[2023-03-03] MEDS: HYDROCODONE/APAP 5MG-325MG TAB PO PRN (22:04)
[2023-03-03] MEDS: MELATONIN 3 MG TAB PO SCH (22:04)
[2023-03-03 22:30] VITALS: BP 135/51; PULSE 73; RESP 18; TEMP 97.7; O2SAT 97
[2023-03-04] VITALS (10 sets, daily range): BP systolic 126–151; BP diastolic 51–68; PULSE 73–106; RESP 16–20; TEMP 97.2–98.6; O2SAT 93–98
[2023-03-04] MEDS ORDERED: TRAZODONE HCL50 MG PO (02:35)
[2023-03-04] MEDS ORDERED: METHOCARBAMOL750 MG PO (02:35)
[2023-03-04] MEDS ORDERED: FAMOTIDINE20 MG PO (02:35)
[2023-03-04] MEDS ORDERED: ASPIRIN81 MG PO (02:35)
[2023-03-04] MEDS ORDERED: GLIMEPIRIDE2 MG PO (02:35)
[2023-03-04] MEDS ORDERED: DICYCLOMINE HCL10 MG PO (02:35)
[2023-03-04] MEDS ORDERED: GEMTESA75 MG PO (02:35)
[2023-03-04] MEDS ORDERED: CELEXA20 MG PO (02:35)
[2023-03-04] MEDS ORDERED: SYNJARDY 12.5-1 EACH PO (02:35)
[2023-03-04] MEDS: ONDANSETRON HCL INJ 2MG/ML 2ML 2 MG/ML VIAL IV PRN (04:51)
[2023-03-04] MEDS: Morphine 4mg INJECTION 4 MG/ML INJ IV PRN (04:52)
[2023-03-04 05:28] LABS: BASOPHILS % 0.2 % (0.0-1.0); EOSINOPHILS # (AUTO) 0.1 (0.0-0.4); EOSINOPHILS % 2.3 % (0.0-6.0); HEMATOCRIT 35.2 % (34.2-44.1); HEMOGLOBIN 11.7 g/dL (12.0-16.0); LYMPHOCYTES # (AUTO) 1.6 (1.0-3.2); LYMPHOCYTES % 36.1 % (18.0-39.1); MEAN CORPUSCULAR HEMOGLOBIN 30.5 pg (28-32); MEAN CORPUSCULAR HGB CONC 33.2 g/dL (31-35); MEAN CORPUSCULAR VOLUME 91.7 fL (81-99); MONOCYTES # (AUTO) 0.4 (0.2-0.8); MONOCYTES % 9.8 % (4.4-11.3); NEUTROPHILS # (AUTO) 2.3 (2.1-6.9); NEUTROPHILS % 51.4 % (38.7-80.0); PLATELET COUNT 106 x10e3/uL (140-360); RED BLOOD COUNT 3.84 x10e6/uL (3.6-5.1); RED CELL DISTRIBUTION WIDTH 11.9 % (11.7-14.4)
[2023-03-04 05:52] LABS: ALBUMIN 3.7 g/dL (3.5-5.0); ALBUMIN/GLOBULIN RATIO 1.3 (0.8-2.0); ANION GAP 15.2 mmol/L (8-16); BILIRUBIN,TOTAL 0.5 mg/dL (0.2-1.2); CALCIUM 9.4 mg/dL (8.4-10.2); CREATININE, SERUM 0.67 mg/dL (0.57-1.11); POTASSIUM 4.2 mmol/L (3.5-5.1); TOTAL PROTEIN 6.5 g/dL (6.5-8.1)
[2023-03-04] MEDS: POLYETHYLENE GLYCOL 3350 17 GM PACK PO SCH (07:33)
[2023-03-04] MEDS ORDERED: CEFAZOLIN SODIUM 2 GM ONE (09:09)
[2023-03-04] MEDS ORDERED: BUPIVACAINE HCL 0.5% INJ 30 ML VIAL INJ ONE (10:58)
[2023-03-04] MEDS ORDERED: Vancomycin IV 1 GM VIAL ONE (11:40)
[2023-03-04] MEDS ORDERED: ROPIVACAINE 0.5% 5 MG/ML 30 ML SDV ONE (11:49)
[2023-03-04] MEDS ORDERED: MIDAZOLAM HCL 2 MG/2 ML VIAL ONE (12:19)
[2023-03-04] MEDS ORDERED: FENTANYL CITRATE/PF 100MCG/2 ML INJ ONE (12:19)
[2023-03-04] MEDS: FENTANYL CITRATE/PF 100MCG/2 ML INJ ONE ×2 (13:05→13:10)
[2023-03-04] MEDS ORDERED: KETOROLAC TROMETHAMINE 30 MG/ML VIAL IV PRN (13:30)
[2023-03-04] MEDS ORDERED: ARTIFICIAL TEARS (OPTH) 15 ML BTL OU PRN (16:30)
[2023-03-04] MEDS ORDERED: ONDANSETRON HCL INJ 2MG/ML 2ML 2 MG/ML VIAL ONE (17:15)
[2023-03-04] MEDS ORDERED: LIDOCAINE HCL 2% LOCAL INJ 5 ML SDV VIAL INJ ONE (17:15)
[2023-03-04] MEDS ORDERED: SUCCINYLCHOLINE CHLORIDE 20 MG/ML 10ML VIAL ONE (17:15)
[2023-03-04] MEDS ORDERED: SEVOFLURANE INHAL SOLN 250 ML PEN BTL ONE (17:15)
[2023-03-04] MEDS ORDERED: EPHEDRINE SULFATE INJ 50 MG/ML VIAL ONE (17:15)
[2023-03-04] MEDS ORDERED: KETOROLAC TROMETHAMINE 30 MG/ML VIAL ONE (17:15)
[2023-03-04] MEDS ORDERED: PROPOFOL IV EMULSION 10 MG/ML 20 ML VIAL ONE (17:15)
[2023-03-04] MEDS: CEFAZOLIN SODIUM 2 GM in SODIUM CHLORIDE 0.9% 100 ML IV SCH (17:35)
[2023-03-04] MEDS: GABAPENTIN 300 MG CAP PO SCH (20:58)
[2023-03-04] MEDS: SIMVASTATIN 20 MG TAB PO SCH (20:58)
[2023-03-04] MEDS: MELATONIN 3 MG TAB PO SCH (20:58)
[2023-03-04] MEDS: HYDROCODONE/APAP 5MG-325MG TAB PO PRN (20:58)
[2023-03-05] VITALS (8 sets, daily range): BP systolic 107–136; BP diastolic 47–66; PULSE 83–96; RESP 12–20; TEMP 98–98.7; O2SAT 93–97
[2023-03-05] MEDS: CEFAZOLIN SODIUM 2 GM in SODIUM CHLORIDE 0.9% 100 ML IV SCH ×2 (02:24→10:27)
[2023-03-05] MEDS: HYDROCODONE/APAP 5MG-325MG TAB PO PRN ×4 (02:28→19:19)
[2023-03-05] MEDS: Morphine 4mg INJECTION 4 MG/ML INJ IV PRN ×3 (03:39→22:15)
[2023-03-05 04:54] LABS: HEMATOCRIT 33.8 % (34.2-44.1); HEMOGLOBIN 11.4 g/dL (12.0-16.0)
[2023-03-05] MEDS: LEVOTHYROXINE SODIUM 75 MCG TAB PO SCH (05:25)
[2023-03-05] MEDS: GABAPENTIN 300 MG CAP PO SCH ×4 (08:24→20:42)
[2023-03-05] MEDS: CITALOPRAM HYDROBROMIDE 20 MG TAB PO SCH (08:24)
[2023-03-05] MEDS: POLYETHYLENE GLYCOL 3350 17 GM PACK PO SCH (08:24)
[2023-03-05] MEDS: FAMOTIDINE 20 MG TAB PO SCH ×2 (08:24→16:59)
[2023-03-05] MEDS: ATENOLOL 50 MG TAB PO SCH (08:25)
[2023-03-05] MEDS: LOSARTAN POTASSIUM 25 MG TAB PO SCH (08:26)
[2023-03-05] MEDS ORDERED: DEXTROSE 50% SYRINGE 50 ML IV PRN (09:15)
[2023-03-05] MEDS: INSULIN LISPRO 100 UNIT/1 ML 3ML VIAL SQ SCH ×3 (11:30→20:14)
[2023-03-05] MEDS: ENOXAPARIN SOD INJ 40 MG/0.4 ML SYR SC SCH (16:59)
[2023-03-05] MEDS: MELATONIN 3 MG TAB PO SCH (20:42)
[2023-03-05] MEDS: SIMVASTATIN 20 MG TAB PO SCH (20:42)
[2023-03-06] VITALS (9 sets, daily range): BP systolic 108–153; BP diastolic 47–60; PULSE 84–95; RESP 18–20; TEMP 98–99.8; O2SAT 93–97
[2023-03-06] MEDS: Morphine 4mg INJECTION 4 MG/ML INJ IV PRN ×4 (03:48→19:19)
[2023-03-06 05:15] LABS: HEMATOCRIT 33.5 % (34.2-44.1); HEMOGLOBIN 11.4 g/dL (12.0-16.0)
[2023-03-06] MEDS: LEVOTHYROXINE SODIUM 75 MCG TAB PO SCH (06:31)
[2023-03-06] MEDS: HYDROCODONE/APAP 5MG-325MG TAB PO PRN ×2 (07:08→17:20)
[2023-03-06] MEDS: INSULIN LISPRO 100 UNIT/1 ML 3ML VIAL SQ SCH ×4 (07:10→20:43)
[2023-03-06] MEDS: POLYETHYLENE GLYCOL 3350 17 GM PACK PO SCH (08:27)
[2023-03-06] MEDS: GABAPENTIN 300 MG CAP PO SCH ×4 (08:27→20:47)
[2023-03-06] MEDS: ATENOLOL 50 MG TAB PO SCH (08:28)
[2023-03-06] MEDS: LOSARTAN POTASSIUM 25 MG TAB PO SCH (08:29)
[2023-03-06] MEDS: FAMOTIDINE 20 MG TAB PO SCH ×2 (08:29→17:16)
[2023-03-06] MEDS: CITALOPRAM HYDROBROMIDE 20 MG TAB PO SCH (08:29)
[2023-03-06] MEDS: ENOXAPARIN SOD INJ 40 MG/0.4 ML SYR SC SCH (17:16)
[2023-03-06] MEDS: MELATONIN 3 MG TAB PO SCH (20:47)
[2023-03-06] MEDS: SIMVASTATIN 20 MG TAB PO SCH (20:47)
[2023-03-07 00:17] VITALS: BP 119/53; PULSE 89; RESP 19; TEMP 98.2; O2SAT 94
[2023-03-07] MEDS: Morphine 4mg INJECTION 4 MG/ML INJ IV PRN ×3 (02:41→12:55)
[2023-03-07 05:35] VITALS: BP 123/41; PULSE 62; RESP 18; TEMP 97.9; O2SAT 96
[2023-03-07] MEDS: LEVOTHYROXINE SODIUM 75 MCG TAB PO SCH (06:19)
[2023-03-07] MEDS: INSULIN LISPRO 100 UNIT/1 ML 3ML VIAL SQ SCH ×2 (07:30→12:24)
[2023-03-07 07:37] VITALS: PULSE 86; RESP 20; O2SAT 97
[2023-03-07 08:29] VITALS: BP 124/58; PULSE 86; RESP 19; TEMP 98.4; O2SAT 97
[2023-03-07] MEDS: ONDANSETRON HCL 4 MG ORAL DISINTEGRATING TAB PO PRN ×2 (08:46→12:55)
[2023-03-07] MEDS: POLYETHYLENE GLYCOL 3350 17 GM PACK PO SCH (10:31)
[2023-03-07] MEDS: GABAPENTIN 300 MG CAP PO SCH ×2 (10:31→12:55)
[2023-03-07] MEDS: CITALOPRAM HYDROBROMIDE 20 MG TAB PO SCH (10:31)
[2023-03-07] MEDS: LOSARTAN POTASSIUM 25 MG TAB PO SCH (10:31)
[2023-03-07] MEDS: FAMOTIDINE 20 MG TAB PO SCH (10:32)
[2023-03-07] MEDS: ATENOLOL 50 MG TAB PO SCH (10:32)
[2023-03-07 11:39] VITALS: BP 133/46; PULSE 93; RESP 19; TEMP 97.4; O2SAT 96
[2023-03-07] MEDS: HYDROCODONE/APAP 5MG-325MG TAB PO PRN (13:01)
== END 2023-03-07 13:53 | DRG 482 ==
LOC: ER 11:52 → ERHOLD 14:43 → MED/SURG 19:29
PROVIDERS: ADMIT Family Medicine; ATTEND Family Medicine
PROC: 0QSB04Z Reposition Right Lower Femur with Internal Fixation Device, Open Approach (ICD-10-PCS; principal; 2023-03-04 10:17)
DX: S72.491A Other fracture of lower end of right femur, initial encounter for closed fracture (principal); W01.0XXA Fall on same level from slipping, tripping and stumbling without subsequent striking against object, initial encounter; Y92.008 Other place in unspecified non-institutional (private) residence as the place of occurrence of the external cause; E11.649 Type 2 diabetes mellitus with hypoglycemia without coma; E78.5 Hyperlipidemia, unspecified; K21.9 Gastro-esophageal reflux disease without esophagitis; E66.9 Obesity, unspecified; N32.81 Overactive bladder; K59.00 Constipation, unspecified; Z68.31 Body mass index [BMI] 31.0-31.9, adult; Z79.4 Long term (current) use of insulin; Z79.84 Long term (current) use of oral hypoglycemic drugs; Z79.890 Hormone replacement therapy; Z20.822 Contact with and (suspected) exposure to COVID-19; M25.461 Effusion, right knee; I10 Essential (primary) hypertension
CPT/HCPCS: 36415; 51700; 71045; 72192; 76000; 80053; 81001; 82948; 85014; 85018; 85025; 85610; 85730; 86850; 86900; 90471; 90714; 93005; 94799; 99284; C1713; J0330; J1650; J1885; J2001; J2250; J2270; J2405; J2795; J7050; J7799; Q0162; U0002

== ENCOUNTER 2023-07-25 10:51 | Outpatient (RCR) | payer MEDICARE, OTHER ==
[~2023-07-25 10:51] MED LIST changes: +ASPIRIN81 MG PO; +CELEXA20 MG PO; +DICYCLOMINE HCL10 MG PO; +FAMOTIDINE20 MG PO; +GEMTESA75 MG PO; +GLIMEPIRIDE2 MG PO; +METHOCARBAMOL750 MG PO; +SYNJARDY 12.5-1 EACH PO; +TRAZODONE HCL50 MG PO
== END 2023-08-23 ==
LOC: PT 10:51
PROVIDERS: ATTEND Orthopaedic Surgery
DX: S72 Fracture of femur (principal)

== ENCOUNTER 2023-10-17 14:00 | Outpatient (RCR) | payer MEDICARE, OTHER | END 2023-10-23 | LOC: PT 14:00 | PROVIDERS: ATTEND Orthopaedic Surgery | DX: S72.91XD Unspecified fracture of right femur, subsequent encounter for closed fracture with routine healing (principal) ==